=== PATIENT | male | born 1955 | race Caucasian/White ===

== ENCOUNTER → 2017-06-30 06:51 | Outpatient (CLI) | payer BC, SELFPAY ==
--- NOTE | 2017-06-30 10:53 | PFTCOMP ---
COMPLETE PULMONARY FUNCTION TEST INTERPRETATION Brief HPI: Patient is a 61 year old male, currently under the care of Dr. Moore, who presents to [facility] for complete pulmonary function tests secondary to diagnosis of dyspnea on exertion. Respiratory therapist reports good effort and reproducible results. Interpretation: Forced expiration spirometry shows a mild large airways obstructive ventilatory defect with an FEV1 of 79 % predicted. There is no significant bronchodilator response by ATS criteria. Spirograms are of good quality and plateau slowly, indicating slowly emptying areas of the lungs. The respiratory flow volume loop shows decreased expiratory flow rates at all lung volumes consistent with airway obstruction. Lung volumes by body plethysmography show a normal total lung capacity at 5.74 L, 97 % predicted. All other lung volumes are within normal limits. Diffusion capacity by carbon monoxide is at the lower limit of normal at 72 % predicted. The airway resistance is elevated. No previous pulmonary function tests were available for review. Impression: Irreversible mild large airways obstructive ventilatory defect with a symmetric reduction diffusing capacity consistent with the diagnosis of COPD.
--- NOTE | 2017-06-30 10:56 | PFTCOMP_ITS ---
COMPLETE PULMONARY FUNCTION TEST INTERPRETATION Brief HPI: Patient is a 61 year old male, currently under the care of Dr. Moore, who presents to [facility] for complete pulmonary function tests secondary to diagnosis of dyspnea on exertion. Respiratory therapist reports good effort and reproducible results. Interpretation: Forced expiration spirometry shows a mild large airways obstructive ventilatory defect with an FEV1 of 79 % predicted. There is no significant bronchodilator response by ATS criteria. Spirograms are of good quality and plateau slowly, indicating slowly emptying areas of the lungs. The respiratory flow volume loop shows decreased expiratory flow rates at all lung volumes consistent with airway obstruction. Lung volumes by body plethysmography show a normal total lung capacity at 5.74 L , 97 % predicted. All other lung volumes are within normal limits. Diffusion capacity by carbon monoxide is at the lower limit of normal at 72 % predicted. The airway resistance is elevated. No previous pulmonary function tests were available for review. Impression: Irreversible mild large airways obstructive ventilatory defect with a symmetric reduction diffusing capacity consistent with the diagnosis of COPD.
== END ==
PROVIDERS: Family Provider Internal Medicine; PCP Internal Medicine; Visit Provider Internal Medicine
DX: R06.09 Other forms of dyspnea (principal)
CPT/HCPCS: 94060; 94726; 94729

== ENCOUNTER → 2017-11-15 05:57 | Outpatient (CLI) | payer BC, SELFPAY ==
[2017-11-15 09:16] LABS: Hemoglobin A1c 6.5 % (4.2-6.3)
[2017-11-15 09:27] LABS: ALB/GLOB Ratio 1.2 RATIO (0.9-2.4); AST(SGOT) 22 U/L (15-37); Alanine Aminotransfer ALT/SGPT 32 U/L (16-61); Albumin, Serum 3.9 g/dL (3.2-5.0); Alkaline Phosphatase 72 U/L (45-117); Anion Gap 14 (5-15); BUN 16 mg/dL (7-18); BUN/Creat Ratio 20.9 RATIO (10-20); Calcium,Total 8.8 mg/dL (8.5-10.1); Chloride 103 mmol/L (98-107); Cholesterol 107 mg/dL (200); Creatinine, Serum 0.76 mg/dL (0.70-1.30); EST Glomerular Filtration Rate 110 mL/min (>60); Est Glom Filt Rate - Afr Amer 133 mL/min (>60); Globulin 3.3 g/dL (2.2-4.2); Glucose 116 mg/dL (74-106); High Density Lipoprotein 32 mg/dL; Potassium 3.8 mmol/L (3.5-5.1); Protein, Total 7.2 g/dL (6.4-8.2); Sodium Level 143 mmol/L (136-145); Thyroid Stim Hormone (TSH) 0.21 uIU/mL (0.358-3.74); Triglycerides 171 mg/dL; Very Low Density Lipoprotein 34 mg/dL (5-40)
== END ==
PROVIDERS: Family Provider Internal Medicine; PCP Internal Medicine; Visit Provider Internal Medicine
DX: E11.9 Type 2 diabetes mellitus without complications (principal); R94.6 Abnormal results of thyroid function studies; E78.4 Other hyperlipidemia
CPT/HCPCS: 36415; 80053; 80061; 83036; 84443

== ENCOUNTER → 2018-03-01 10:15 | Outpatient (CLI) | payer BC, SELFPAY ==
--- NOTE | 2018-03-01 10:17 | US_ITS ---
STUDY: THYROID ULTRASOUND REASON FOR EXAM: Male, 62 years old. Nodule TECHNIQUE: Ultrasound evaluation of the thyroid was performed with real-time and static rocha-scale imaging. COMPARISON: Prior study of 03/25/2017 FINDINGS: RIGHT LOBE: The right lobe of the thyroid gland measures 4.5 x 1.6 x 2.0 cm. There is a homogeneous echotexture. There are no demonstrated solid, cystic or complex lesions. LEFT LOBE: The left lobe of the thyroid gland measures 3.9 x 1.4 x 1.2 cm. There is a homogeneous echotexture. There is a hyperechoic nodule of the upper pole with hypoechoic halo measuring 6 x 6 x 4 mm. There is minimal peripheral vascularity. ISTHMUS: The isthmus measures 4 mm . The regional lymph nodes are normal. US/Thyroid IMPRESSION: Stable hyperechoic nodule of the upper pole of the left thyroid lobe. Electronically Signed: Kingston Marquis MD at 23:56 EST , Service support ,
== END ==
PROVIDERS: Family Provider Internal Medicine; PCP Internal Medicine; Referring Provider Internal Medicine; Visit Provider Internal Medicine
DX: E04.1 Nontoxic single thyroid nodule (principal); R79.89 Other specified abnormal findings of blood chemistry
CPT/HCPCS: 36415; 76536; 84443

== ENCOUNTER → 2018-03-24 06:05 | Outpatient (CLI) | payer BC, SELFPAY ==
--- NOTE | 2018-03-24 06:11 | ECHOD_ITS ---
Procedure This was a 2D Doppler, Color Flow transthoracic echocardiogram. The exam was of adequate technical quality. Exam performed in department. Left Ventricle Normal LV size. Apical false tendon noted. Left ventricular systolic function is normal. The estimated ejection fraction is 60 %. No evidence for diastolic dysfunction. No regional wall motion abnormalities noted. Right Ventricle Normal RV size. Normal systolic function. Atria Normal left atrium. Normal right atrium. No doppler evidence for ASD. Mitral Valve There is no mitral annular calcification. Normal mitral valve. Mild (1+) mitral valve insufficiency. Tricuspid Valve Normal tricuspid valve. Trivial tricuspid valve insufficiency. Right ventricular systolic pressure estimated to be 30 mmHg. Aortic Valve Trisinus/trileaflet aortic valve. Mild focal aortic valve calcification. Pulmonic Valve The pulmonic valve is not well visualized. Mild (1+) pulmonic valve insufficiency. Great Vessels Normal sized aortic root. Calcified aortic root. Pericardium/Pleural No pericardial effusion. MMode/2D Measurements & Calculations LVIDd: 4.2 cm IVSd: 1.1 cm Ao root diam: 3.3 cm LVIDs: 3.1 cm LVPWd: 1.0 cm RVDd: 3.7 cm FS: 25.9 % LAV(MOD-bp): 53.8 ml LA A4 area: 17.0 cm2 LA dimension(2D): 3.5 cm LAV(MOD-bp) Indexed: 28.0 ml/m2 LAV(MOD-sp2): 59.0 ml LAV(MOD-sp4): 49.4 ml RA A4 area: 15.0 cm2 Time Measurements MV dec time: 0.22 sec Doppler Measurements & Calculations MV E max ameya: 57.0 cm/sec Lat Peak E' Ameya: 11.8 cm/sec Med Peak E' Ameya: 8.7 cm/sec MV A max ameya: 76.2 cm/sec E/E' lat: 4.8 E/E' med: 6.6 MV E/A: 0.75 Ao V2 max: 120.3 cm/sec LV V1 max: 88.1 cm/sec PA V2 max: 118.2 cm/sec Ao max P.8 mmHg LV V1 max P.1 mmHg TR max ameya: 258.8 cm/sec TR max P.8 mmHg Interpretation Summary Left ventricular systolic function is normal. The estimated ejection fraction is 60 %. Apical false tendon noted. Mild (1+) mitral valve insufficiency. Trivial tricuspid valve insufficiency. Mild focal aortic valve calcification. Mild (1+) pulmonic valve insufficiency. Calcified aortic root. Right ventricular systolic pressure estimated to be 30 mmHg. No evidence for diastolic dysfunction. Ordering Physician: Rena Moore Referring Physician: Rena Moore Performed By: Melly Rand, RDCS, RVT
--- NOTE | 2018-03-24 13:24 | STRESSREP_ITS ---
Stress Test Report Date: 03/24/2018 Procedure: Exercise tolerance test/imaging study Indications: Chest pain; dyspnea on exertion Consent: Per the patient Procedure: The patient exercised on a Ruben protocol for 8 minutes completing Stage II and 2 minutes of Stage III achieving a peak heart rate of 148 bpm (93 % predicted maximal heart rate) with a peak blood pressure 184/70 mmHg and a peak MET capacity of 9 METs. The baseline ECG demonstrated sinus rhythm. The peak exercise ECG demonstrated no obvious ECG changes. There were no cardiac dysrhythmias pretest, during exercise, or recovery. The functional capacity was considered good. There was no complaint of chest discomfort during exercise or recovery. The examination was discontinued secondary to dyspnea. Impression: 1. Technically adequate (percent predicted maximal heart rate greater than 85%) exercise tolerance test 2. Peak exercise ECG straight with no obvious ECG changes 3. There were no cardiac dysrhythmias pretest, during exercise, or recovery 4. Nuclear images pending Myocardial perfusion imaging study: Technique: The patient was injected with 11.4 mCi of technetium 99m Cardiolite and subsequently rest SPECT Cardiolite nuclear imaging was obtained in the horizontal long, vertical long, and short axis views. The patient exercised on a Ruben protocol for 8 minutes completing Stage Ii and 2 minutes of Stage III achieving a peak heart rate of 148 bpm (93% predicted maximal heart rate) with a peak blood pressure 184/70 mmHg and a peak MET capacity of 9 METs. The patient was injected with 33.3 mCi of technetium 99m Cardiolite and subsequently stress SPECT Cardiolite nuclear imaging was obtained in the horizontal long, vertical long, and short axis views. A gated Cardiolite study at peak stress was obtained. Interpretation: Rest and stress SPECT Cardiolite nuclear imaging status post realignment, normalization, and attenuation correction, demonstrates the appearance of relative uniform tracer uptake and myocardial perfusion appearing within normal limits. There is end systolic thickening and brightening. The gated Cardiolite study demonstrates myocardial thickening and inward wall motion. The reported LVEF is 62%. Impression: 1. Rest and stress SPECT Cardiolite nuclear imaging demonstrate relative uniform tracer uptake and myocardial perfusion appearing within normal limits. 2. The gated Cardiolite study reports an LVEF of 62%. This note was generated with [employer] software. It may contain incorrect words, spelling, and punctuation that were not noted in checking the note before signing.
== END ==
PROVIDERS: Family Provider Internal Medicine; PCP Internal Medicine; Referring Provider Internal Medicine; Visit Provider Internal Medicine
DX: I42.9 Cardiomyopathy, unspecified (principal); R07.9 Chest pain, unspecified
CPT/HCPCS: 78452; 93017; 93306; A9500; A4216

== ENCOUNTER → 2018-06-22 06:24 | Outpatient (CLI) | payer BC, SELFPAY ==
[2018-06-22 07:44] LABS: Absolute Lymphocyte Count 1.76 X10^3/ul (0.83-4.51); Absolute Neutrophil Count 9.3 X10^3/uL (2.0-7.7); Basophil# 0.05 X10^3/uL; Basophil% 0.4 % (0-1); Eosinophil# 0.45 X10^3/uL; Eosinophils% 3.4 % (0-5); Hematocrit 40.8 % (40-54); Hemoglobin 12.8 g/dl (13.0-16.5); Lymphocyte # 1.76 X10^3/ul (4.0); Lymphocyte % 13.4 % (19-41); Mean Corp Hgb Conc 31.4 g/gl (32-36); Mean Corpuscular Hgb 28.8 pg (27.0-32.0); Mean Corpuscular Volume 91.9 fL (80-94); Mean Platelet Vol. 9.8 fl (6.2-12.0); Monocyte# 1.51 X10^3/uL; Monocyte% 11.5 % (0-10); Neutrophil # 9.34 X10^3/uL (2.7-7.7); Neutrophil % 71.1 % (47-70); Platelet Count 272 K/mm3 (150-450); RBC Distribution Width CV 14.7 % (11.6-14.6); RBC Distribution Width SD 48.2 fl (35.1-43.9); Red Blood Count 4.44 M/mm3 (4.6-6.2); White Blood Count 13.1 K/mm3 (4.4-11.0)
[2018-06-22 07:45] LABS: Differential Indicated SCAN CRITERIA MET; POSITIVE COUNT NO; POSITIVE DIFFERENTIAL YES; POSITIVE MORPHOLOGY NO
[2018-06-22 07:56] LABS: ALB/GLOB Ratio 1.1 RATIO (0.9-2.4); AST(SGOT) 20 U/L (15-37); Alanine Aminotransfer ALT/SGPT 29 U/L (16-61); Albumin, Serum 3.9 g/dL (3.2-5.0); Alkaline Phosphatase 73 U/L (45-117); Anion Gap 7 (5-15); BUN 14 mg/dL (7-18); BUN/Creat Ratio 16.9 RATIO (10-20); Calcium,Total 8.8 mg/dL (8.5-10.1); Chloride 105 mmol/L (98-107); Cholesterol 118 mg/dL (200); Creatinine, Serum 0.83 mg/dL (0.70-1.30); EST Glomerular Filtration Rate 100 mL/min (>60); Est Glom Filt Rate - Afr Amer 121 mL/min (>60); Globulin 3.4 g/dL (2.2-4.2); Glucose 109 mg/dL (74-106); High Density Lipoprotein 38 mg/dL; Potassium 3.7 mmol/L (3.5-5.1); Protein, Total 7.3 g/dL (6.4-8.2); Sodium Level 141 mmol/L (136-145); Triglycerides 114 mg/dL; Very Low Density Lipoprotein 23 mg/dL (5-40)
[2018-06-22 08:26] LABS: Differential Comment SCANNED
[2018-06-22 12:47] LABS: Hemoglobin A1c 6.6 % (4.2-6.3)
== END ==
PROVIDERS: Family Provider Internal Medicine; PCP Internal Medicine; Referring Provider Internal Medicine; Visit Provider Internal Medicine
DX: E78.49 Other hyperlipidemia (principal); E11.9 Type 2 diabetes mellitus without complications
CPT/HCPCS: 36415; 80053; 80061; 83036; 85025

== ENCOUNTER → 2018-06-27 08:39 | Outpatient (CLI) | payer BC, SELFPAY ==
--- NOTE | 2018-06-27 08:46 | US_ITS ---
PROCEDURES: ULTRASOUND AORTA REASON FOR EXAM: Male, 62 years old. Evaluate abdominal aortic aneurysm. TECHNIQUE: Ultrasound evaluation of the aorta was performed with real-time and static rocha-scale imaging. COMPARISON: 02/10/2016. FINDINGS: There is no elongation or tortuosity of the abdominal aorta. Aorta measures: Proximal 2.1 cm. Middle 2 cm. Distal 2.4 cm. Aorta measure transversely: Proximal 2.3 cm. Middle 2.4 cm. Distal 2.8 cm. Right iliac artery measures: 1.3 cm. Right iliac artery measure transversely: 1.1 cm. Left iliac artery measures: 1 cm. Left iliac artery measure transversely: 1 cm. There is no demonstrated aneurysm.. There are atherosclerotic plaque formation throughout the aorta. US/Aorta IMPRESSION: 1. Minimal ectasia of the distal abdominal aorta without evidence of abdominal aortic aneurysm unchanged since the prior exam. 2. Atherosclerotic changes. Electronically Signed: Nawaf Day MD at 10:27 EDT Tel , Service support ,
== END ==
PROVIDERS: Family Provider Internal Medicine; PCP Internal Medicine; Referring Provider Internal Medicine; Visit Provider Internal Medicine
DX: I71.4 Abdominal aortic aneurysm, without rupture (principal)
CPT/HCPCS: 76775

== ENCOUNTER → 2018-12-23 16:31 | Outpatient (CLI) | payer BC, SELFPAY ==
[2018-09-08 08:54] VITALS: BMI 28.4
[2018-12-23 17:06] LABS: Absolute Lymphocyte Count 2.26 X10^3/uL (0.83-4.51); Absolute Neutrophil Count 8.7 X10^3/uL (2.0-7.7); Basophil# 0.08 X10^3/uL; Basophil% 0.6 % (0-1); Eosinophil# 0.49 X10^3/uL; Eosinophils% 3.9 % (0-5); Hematocrit 39.2 % (40-54); Hemoglobin 12.6 g/dL (13.0-16.5); Lymphocyte # 2.26 X10^3/ul (4.0); Lymphocyte % 17.8 % (19-41); Mean Corp Hgb Conc 32.1 g/dL (32-36); Mean Corpuscular Hgb 28.8 pg (27.0-32.0); Mean Corpuscular Volume 89.7 fL (80-94); Mean Platelet Vol. 9.1 fl (6.2-12.0); Monocyte# 1.16 X10^3/uL; Monocyte% 9.1 % (0-10); NRBC Flagged by Analyzer 0 % (0-5); Neutrophil # 8.69 X10^3/uL (2.7-7.7); Neutrophil % 68.4 % (47-70); Platelet Count 282 K/mm3 (150-450); RBC Distribution Width CV 14.2 % (11.6-14.6); RBC Distribution Width SD 46.3 fl (35.1-43.9); Red Blood Count 4.37 M/mm3 (4.6-6.2); White Blood Count 12.7 K/mm3 (4.4-11.0)
[2018-12-23 17:24] LABS: Hemoglobin A1c 6.7 % (4.2-6.3)
[2018-12-23 17:26] LABS: Microalbumin,Random Urine 73.1 mg/L (NO RANGE EST.); Microalbumin:Creatinine Ratio 63.6 mg/g CRE (<30 mg/g CRE)
[2018-12-23 17:37] LABS: AST(SGOT) 18 U/L (15-37); Alanine Aminotransfer ALT/SGPT 24 U/L (16-61); Albumin, Serum 3.8 g/dL (3.2-5.0); Alkaline Phosphatase 72 U/L (45-117); Anion Gap 6 (5-15); BUN 17 mg/dL (7-18); BUN/Creat Ratio 20.9 RATIO (10-20); CRP, High Sensitivity Cardiac 3.38 mg/L; Calcium,Total 9.2 mg/dL (8.5-10.1); Chloride 107 mmol/L (98-107); Cholesterol 120 mg/dL (200); Creatinine, Serum 0.81 mg/dL (0.70-1.30); EST Glomerular Filtration Rate 102 mL/min (>60); Est Glom Filt Rate - Afr Amer 123 mL/min (>60); Globulin 3.7 g/dL (2.2-4.2); Glucose 96 mg/dL (74-106); High Density Lipoprotein 35 mg/dL; Potassium 4.2 mmol/L (3.5-5.1); Protein, Total 7.5 g/dL (6.4-8.2); Sodium Level 141 mmol/L (136-145); Triglycerides 104 mg/dL; Very Low Density Lipoprotein 21 mg/dL (5-40)
== END ==
PROVIDERS: Family Provider Internal Medicine; PCP Internal Medicine; Referring Provider Internal Medicine; Visit Provider Internal Medicine
DX: R79.82 Elevated C-reactive protein (CRP) (principal); I11.9 Hypertensive heart disease without heart failure; E78.49 Other hyperlipidemia; E11.9 Type 2 diabetes mellitus without complications
CPT/HCPCS: 36415; 80053; 80061; 82043; 82570; 83036; 85025; 86141

== ENCOUNTER → 2019-02-21 08:42 | Outpatient (CLI) | payer BC, SELFPAY ==
[2018-09-08 08:54] VITALS: BMI 28.4
--- NOTE | 2019-02-21 08:44 | US_ITS ---
STUDY: THYROID ULTRASOUND REASON FOR EXAM: Male, 63 years old. Nodule TECHNIQUE: Ultrasound evaluation of the thyroid was performed with real-time and static rocha-scale imaging. COMPARISON: March 01, 2018 FINDINGS: RIGHT LOBE: The right lobe of the thyroid gland measures 4.4 x 1.2 x 1.4 cm. There is a homogeneous echotexture. There are no demonstrated solid, cystic or complex lesions. LEFT LOBE: The left lobe of the thyroid gland measures 4.0 x 1.4 x 1.6 cm. There is a homogeneous echotexture. There is a stable hyperechoic nodule with a hypoechoic halo measuring 5.7 x 5.6 x 3.7 mm. There is a colloid cyst noted within the left lobe of the gland as well that is stable. ISTHMUS: The isthmus measures 2.0 millimeters. US/Thyroid IMPRESSION: Stable hyperechoic nodule within the left lobe of the thyroid gland. Electronically Signed: Ana Barry MD at 17:22 EST Tel , Service support ,
== END ==
PROVIDERS: Family Provider Internal Medicine; PCP Internal Medicine; Referring Provider Internal Medicine; Visit Provider Internal Medicine
DX: E04.1 Nontoxic single thyroid nodule (principal)
CPT/HCPCS: 76536

== ENCOUNTER → 2019-03-14 16:58 | Outpatient (CLI) | payer BC, SELFPAY ==
[2018-09-08 08:54] VITALS: BMI 28.4
--- NOTE | 2019-03-14 | IMM_PTH ---
PATIENT: ERMA PÉREZ LOC: [facility] U#:[id number] AGE/SX: 69/M ROOM: RE03/14/[address]: Dr. Radames Armenta MD : 1955 BED: DIS: SPEC #: [id number] RECD: 03/16/19 13:35 STATUS: ROQUE REQ #: [id number] NIKKO: 03/14/19 00:[address]: Radames Armenta DEPT: IMMUNOHISTOCHEMISTRY RECD BY: Brook Adams ENTERED: 03/16/19 13:36 SP TYPE: IMMUNO OTHR DR: Dr. Rena Moore DO Tissues: B - PROSTATE RIGHT E - PROSTATE LEFT Procedures: 34BE12 (add) P40 (add) 34BE12 (initial) PHYSICIAN & INSTITUTION [place] [id number] SPECIMEN INFORMATION: Tissue Source: B - Right prostate, mid, core biopsy, E - Left prostate, mid, core biopsy Clinical Info: Elevated PSA Specimen Number: [id number] B & E CPT code: 19444, 61825 x3 METHODOLOGY: Deparaffinized sections of prefer/formalin-fixed tissue or PAP/DQ stained slides are incubated with monoclonal/polyclonal antibodies/oligonucleotide probes. Localization is made via biotin free immunoperoxidase method. Appropriate controls are performed and reacted as expected. Results on target cell population are indicated in the following table: RESULTS: ANTIBODY / CLONE RESULT Block B P40 (BC28) negative * 34BE12 (34BE12) negative * Block E P40 (BC28) negative 34BE12 (34BE12) negative *?Positive in the area of high grade prostatic intraepithelial neoplasia. These tests were developed and their performance characteristics determined by [facility]. They may not have been cleared or approved by the U.S. Food and Drug Administration. The FDA has determined that such clearance or approval is not necessary. The above immunohistochemical/dualISH markers are ordered and reviewed by the Pathologist. INTERPRETATION: B. Right prostate, mid, core biopsy: Adenocarcinoma. Focal high-grade prostatic intraepithelial neoplasia (HGPIN). E. Left prostate, mid, core biopsy: Adenocarcinoma. SJ:toby 03/17/19
--- NOTE | 2019-03-14 08:00 | PROSBIL_PTH ---
PATIENT: ERMA PÉREZ LOC: [facility] U#:[id number] AGE/SX: 69/M ROOM: RE03/14/[address]: Dr. Radames Armenta MD : 1955 BED: DIS: SPEC #: [id number] RECD: 03/14/19 16:00 STATUS: ROQUE JANNET #: [id number] NIKKO: 03/14/19 08:[address]: Radames Armenta DEPT: SURGICAL PATHOLOGY RECD BY: Manav Montes ENTERED: 03/15/19 11:53 SP TYPE: PROST BX EARNESTINE DR: Dr. Rena Moore DO Tissues: A - PROSTATE RIGHT B - PROSTATE RIGHT C - PROSTATE RIGHT D - PROSTATE LEFT E - PROSTATE LEFT F - PROSTATE LEFT Procedures: PROSTATE BX HEADER OPERATION: Prostate biopsy PRE-OP DIAGNOSIS: Elevated PSA TISSUE SUBMITTED: A - Right apex, B - Right mid, C - Right base, D - Left apex, E - Left mid, F - Left base MICROSCOPIC DIAGNOSIS A. Right prostate, apex, core biopsy: Prostatic tissue, negative for malignancy. B. Right prostate, mid, core biopsy: Prostatic adenocarcinoma: [place] grade: 3+3=6 Number of cores involved: 2/2 Proportion of tissue involved: ~50% Perineural invasion: Not identified. Greatest tumor length: 0.7 cm Focal high-grade prostatic intraepithelial neoplasia (HGPIN). See comment. C. Right prostate, base, core biopsy: Prostatic tissue with focal area suspicious for high-grade prostatic intraepithelial neoplasia (HGPIN). D. Left prostate, apex, core biopsy: Prostatic tissue, negative for malignancy. E. Left prostate, mid, core biopsy: Prostatic adenocarcinoma: [place] grade: 3+3=6 Number of cores involved: 1/2 Proportion of tissue involved: <5% Perineural invasion: Not identified. Greatest tumor length: 0.2 cm Focal chronic inflammation. See comment. F. Left prostate, base, core biopsy: Focal high-grade prostatic intraepithelial neoplasia (HGPIN). SJ:toby 03/16/19 COMMENT B. Immunohistochemistry ([id number]) supports the above diagnosis. High prostatic intraepithelial neoplasia is present in the area of invasive carcinoma and comprise about 50% of the total tumor volume. E. Immunohistochemistry ([id number]) supports the above diagnosis. MICROSCOPIC DESCRIPTION Slides are reviewed. GROSS DESCRIPTION A - Received is one container designated prostate, right apex. The specimen consists of three elongated fragments of light littlejohn-white soft tissue measuring 0.3 to 0.5 cm in length and 0.1 cm in diameter. The specimen is totally submitted in one cassette. B - Received is one container designated prostate, right mid. The specimen consists of two elongated fragments of light littlejohn-white soft tissue each measuring 1 cm in length and 0.1 cm in diameter. The specimen is totally submitted in one cassette. C - Received is one container designated prostate, right base. The specimen consists of two elongated fragments of light littlejohn-white soft tissue measuring 0.5 and 1 cm in length and 0.1 cm in diameter. The specimen is totally submitted in one cassette. D - Received is one container designated prostate, left apex. The specimen consists of one elongated fragment of light littlejohn-white soft tissue measuring 0.7 cm in length and 0.1 cm in diameter. The specimen is totally submitted in one cassette. E - Received is one container designated prostate, left mid. The specimen consists of two elongated fragments of light littlejohn-white soft tissue each measuring 1 cm in length and 0.1 cm in diameter. The specimen is totally submitted in one cassette. F - Received is one container designated prostate, left base. The specimen consists of two elongated fragments of light littlejohn-white soft tissue each measuring 1 cm in length and 0.1 cm in diameter. The specimen is totally submitted in one cassette. / SJ:rg 03/15/19 TC:0 CPT: 70530 x6 ADDENDUM ADDENDUM ADDENDUM ADDENDUM ADDENDUM ADDENDUM ADDENDUM ADDENDUM 04/19/2019 11:13 ADDENDUM 04/19/2019 11:13 ADDENDUM 04/19/2019 11:13 ADDENDUM 04/19/2019 11:13 ADDENDUM 04/19/2019 11:13 An order for Oncotype testing was received from Dr. Armenta. This necessitated case review, block and slide selection by pathologist at [facility]. Genomic Prostate Score = 44 Results of the complete Oncotype testing (WeShow report) are viewable in EMR under: Reports - Pathology - Lab Pathology Report, Scanned.
== END ==
PROVIDERS: Family Provider Internal Medicine; PCP Internal Medicine; Referring Provider Urology; Visit Provider Urology
DX: R97.20 Elevated prostate specific antigen [PSA] (principal)
CPT/HCPCS: 88305; 88341; 88342; G0416

== ENCOUNTER → 2019-03-27 15:31 | Outpatient (CLI) | payer BC, SELFPAY ==
[2018-09-08 08:54] VITALS: BMI 28.4
== END ==
PROVIDERS: Family Provider Internal Medicine; PCP Internal Medicine; Referring Provider Urology; Visit Provider Urology
DX: N39.0 Urinary tract infection, site not specified (principal)
CPT/HCPCS: 87086

== ENCOUNTER → 2019-04-03 09:32 | Outpatient (CLI) | payer BC, SELFPAY ==
[2018-09-08 08:54] VITALS: BMI 28.4
[2019-04-03 10:29] LABS: Absolute Lymphocyte Count 2.26 X10^3/uL (0.83-4.51); Absolute Neutrophil Count 6.6 X10^3/uL (2.0-7.7); Basophil# 0.09 X10^3/uL; Basophil% 0.9 % (0-1); Eosinophil# 0.35 X10^3/uL; Eosinophils% 3.3 % (0-5); Hematocrit 41.4 % (40-54); Lymphocyte # 2.26 X10^3/ul (4.0); Lymphocyte % 21.4 % (19-41); Mean Corp Hgb Conc 31.4 g/dL (32-36); Mean Corpuscular Hgb 28.4 pg (27.0-32.0); Mean Corpuscular Volume 90.6 fL (80-94); Mean Platelet Vol. 9.7 fl (6.2-12.0); Monocyte# 1.26 X10^3/uL; NRBC Flagged by Analyzer 0 % (0-5); Neutrophil # 6.55 X10^3/uL (2.7-7.7); Neutrophil % 62.1 % (47-70); Platelet Count 281 K/mm3 (150-450); RBC Distribution Width CV 14.6 % (11.6-14.6); RBC Distribution Width SD 48.6 fl (35.1-43.9); Red Blood Count 4.57 M/mm3 (4.6-6.2); White Blood Count 10.5 K/mm3 (4.4-11.0)
[2019-04-03 10:57] LABS: Hemoglobin A1c 6.9 % (4.2-6.3)
[2019-04-03 11:02] LABS: ALB/GLOB Ratio 1.1 RATIO (0.9-2.4); AST(SGOT) 18 U/L (15-37); Alanine Aminotransfer ALT/SGPT 25 U/L (16-61); Alkaline Phosphatase 76 U/L (45-117); Anion Gap 2 (5-15); BUN 20 mg/dL (7-18); BUN/Creat Ratio 24.8 RATIO (10-20); Calcium,Total 9.3 mg/dL (8.5-10.1); Chloride 109 mmol/L (98-107); Cholesterol 130 mg/dL (200); Creatinine, Serum 0.81 mg/dL (0.70-1.30); EST Glomerular Filtration Rate 103 mL/min (>60); Est Glom Filt Rate - Afr Amer 124 mL/min (>60); Globulin 3.7 g/dL (2.2-4.2); Glucose 92 mg/dL (74-106); High Density Lipoprotein 37 mg/dL; Potassium 3.8 mmol/L (3.5-5.1); Protein, Total 7.7 g/dL (6.4-8.2); Sodium Level 141 mmol/L (136-145); Thyroid Stim Hormone (TSH) 0.71 uIU/mL (0.358-3.74); Triglycerides 83 mg/dL; Very Low Density Lipoprotein 17 mg/dL (5-40)
== END ==
PROVIDERS: Family Provider Internal Medicine; PCP Internal Medicine; Referring Provider Internal Medicine; Visit Provider Internal Medicine
DX: E11.9 Type 2 diabetes mellitus without complications (principal); E04.1 Nontoxic single thyroid nodule; E78.49 Other hyperlipidemia
CPT/HCPCS: 36415; 80053; 80061; 83036; 84443; 85025

== ENCOUNTER → 2019-05-29 06:51 | Outpatient (CLI) | payer BC, SELFPAY ==
[2018-09-08 08:54] VITALS: BMI 28.4
[2019-05-29 07:16] LABS: Partial Thromboplast Time 46.7 Seconds (24.1-36.2)
== END ==
PROVIDERS: PCP Internal Medicine
DX: Z01.818 Encounter for other preprocedural examination (principal)
CPT/HCPCS: 36415; 85730

== ENCOUNTER → 2019-09-07 | Outpatient (CLI) | payer BC, SELFPAY ==
[2018-09-08 08:54] VITALS: BMI 28.4
[2019-08-31 11:18] VITALS: BMI 28.1
--- NOTE | 2019-09-07 10:43 | MRI_ITS ---
STUDY: MR PELVIS WITH T WITHOUT CONTRAST REASON FOR EXAM: Male, 63 years old. Prostate cancer. TECHNIQUE: Standardized fat and water weighted pulse sequences were obtained in all 3 orthogonal planes, pre-and post contrast administration. 17ml IV Dotarem was administered for the contrast portion of the examination. COMPARISON: None. FINDINGS: The prostate measures 5.45 x 4.42 x 5.68 cm with a volume of milliliters. The peripheral zone demonstrates uniform signal intensity on diffusion-weighted imaging. ADC mapping and on T2 weighted imaging. There is an area of intense uptake of contrast posteriorly on the right on postgadolinium T1-weighted imaging. The transition zone appears uniformly intermediate signal intensity on T2-weighted imaging. There is a small projection into the floor of the bladder. This appears uniform in signal intensity on both ADC mapping and diffusion-weighted imaging. Seminal vesicles appear normal. No irregularity of the prosthetic margin or evidence of local extension. There is mild trabeculation and minimal thickening of the bladder wall. There is no evidence of filling defect or mass. Normal visualized small intestine. There is sigmoid diverticulosis without acute inflammatory change. There is no pelvic fluid. There is no pelvic mass lesion or lymphadenopathy. Normal visualized pelvic arteries. Normal osseous structures. Normal abdominal wall. MRI/Pelvis W/WO Contrast IMPRESSION: 1. Findings in the peripheral zone consistent with a PIRADS Category 1: normal. There is mild enhancement posteriorly on the right. Question recent biopsy. 2. Findings in the transitional zone consistent with a PIRADS Category 1: Normal. 3. Sigmoid diverticulosis. 4. Bladder trabeculation thought to be secondary to outlet obstruction. Electronically Signed: Lukas Avila DO at 17:05 EDT Tel [phone], Service support ,
--- NOTE | 2019-09-07 11:00 | RAD_ITS ---
STUDY: X-RAY - ORBITS REASON FOR EXAM: Male, 63 years old. Hx of metal to the eye, pre MRI TECHNIQUE: 2 view(s) of the orbits were obtained. COMPARISON: None. FINDINGS: Normal bilateral orbits without a metallic orbital foreign body. Normal visualized facial bones. Normal paranasal sinuses. The soft tissue structures are unremarkable. RAD/Orbits for Foreign Body IMPRESSION: No demonstrated metallic orbital foreign body. The patient is cleared for an MRI examination. Electronically Signed: Andrea Mcdonald, at 11:14 EDT , Service support ,
--- NOTE | 2019-09-18 11:36 | ONC.PHONE ---
I called the patient to review the results from the MRI prostate completed 09/07/2019. This study demonstrated evidence for PI-RADS 1 findings within the peripheral and the transitional zones with no evidence of abnormality in the seminal vesicles and no evidence of potential extraprostatic extension. Also, PSA on 08/31/2019 was found to be 4.9. Patient was still inclined to pursue active surveillance which I believe is reasonable and he will return for a follow-up and PSA in 6 months. We will also plan to have him return to see his urologist for interval exams and biopsies while on active surveillance. He was instructed to call with any further questions or concerns or if he should develop any new symptoms in the interim. Barry Almodovar DO Radiation Oncology
== END | disposition home or self-care (01) ==
PROVIDERS: PCP Internal Medicine; Referring Provider Student in an Organized Health Care Education/Training Program; Visit Provider Student in an Organized Health Care Education/Training Program
DX: C61 Malignant neoplasm of prostate (principal)
CPT/HCPCS: 70030; 72197; A9575

== ENCOUNTER → 2020-01-26 11:26 | Outpatient (CLI) | payer BC, SELFPAY ==
[2018-09-08 08:54] VITALS: BMI 28.4
[2019-08-31 11:18] VITALS: BMI 28.1
--- NOTE | 2020-01-26 11:30 | RAD_ITS ---
STUDY: X-RAY - LUMBAR SPINE REASON FOR EXAM: Male, 64 years old. LOW BACK PAIN, NKI TECHNIQUE: 4 view(s) of the lumbar spine were obtained. COMPARISON: None FINDINGS: Normal lumbar lordosis. There is no substantial scoliosis. 2 mm of anterolisthesis of L4 on L5. There is multilevel endplate spondylosis of the lumbar vertebrae. There is multi-level degenerative disc disease with multi-level disc space narrowing. The soft tissue structures are unremarkable. RAD/L/S Spine Min 4 Views IMPRESSION: Mild diffuse degenerative disc disease with 2 mm of anterolisthesis of L4 on L5. Electronically Signed: Rigoberto Mitchell MD at 9:15 EDT Tel , Service support ,
== END ==
PROVIDERS: PCP Internal Medicine; Referring Provider Internal Medicine; Visit Provider Internal Medicine
DX: M54.5 Low back pain (principal)
CPT/HCPCS: 72110

== ENCOUNTER → 2020-02-02 15:50 | Outpatient (CLI) | payer BC, SELFPAY ==
[2018-09-08 08:54] VITALS: BMI 28.4
[2019-08-31 11:18] VITALS: BMI 28.1
--- NOTE | 2020-02-02 15:56 | US_ITS ---
STUDY: THYROID ULTRASOUND REASON FOR EXAM: Male, 64 years old. F/U NODULE-LT TECHNIQUE: Ultrasound evaluation of the thyroid was performed with real-time and static rocha-scale imaging. COMPARISON: 02/21/2019 FINDINGS: RIGHT LOBE: The right lobe of the thyroid gland measures 4.2 x 1.1 x 1.9 cm. There is a homogeneous echotexture. There are no demonstrated solid, cystic or complex lesions. LEFT LOBE: The left lobe of the thyroid gland measures 4.0 x 1.2 x 1.8 cm. There is a homogeneous echotexture. Nodule 1: Enlarging 9 x 5 x 7 mm solid hyperechoic wider than tall ill-defined marginated nodule with no echogenic foci (TR 3) likely consistent with a small adenoma. ISTHMUS: The isthmus measures 2 mm thick. . The regional lymph nodes are normal. US/Thyroid IMPRESSION: Enlarging probable small adenoma in the left lobe. Follow-up ultrasound in one year would be useful. Electronically Signed: Rigoberto Mitchell MD at 7:48 EST Tel , Service support ,
== END ==
PROVIDERS: PCP Internal Medicine; Referring Provider Internal Medicine; Visit Provider Internal Medicine
DX: E04.1 Nontoxic single thyroid nodule (principal)
CPT/HCPCS: 76536

== ENCOUNTER → 2020-03-04 06:46 | Outpatient (CLI) | payer BC, SELFPAY ==
[2018-09-08 08:54] VITALS: BMI 28.4
[2019-08-31 11:18] VITALS: BMI 28.1
--- NOTE | 2020-03-04 | IMM_PTH ---
PATIENT: ERMA PÉREZ LOC: [facility] U#:[id number] AGE/SX: 69/M ROOM: RE03/04/[address]: Dr. Radames Armenta MD : 1955 BED: DIS: SPEC #: [id number] RECD: 03/06/20 11:27 STATUS: ROQUE REQ #: [id number] NIKKO: 03/04/20 00:[address]: Radames Armenta DEPT: IMMUNOHISTOCHEMISTRY RECD BY: Brook Adams ENTERED: 03/06/20 11:27 SP TYPE: IMMUNO OTHR DR: Dr. Rena Moore DO Tissues: A - PROSTATE RIGHT B - PROSTATE RIGHT Procedures: 34BE12 (add) P40 (add) PSA (initial) PHYSICIAN & INSTITUTION [place] [id number] SPECIMEN INFORMATION: Tissue Source: A - Right prostate, apex, core biopsy, B - Right prostate, mid, core biopsy Clinical Info: Malignant neoplasm of prostate Specimen Number: [id number] A & B CPT code: 99133, 81023 x2 METHODOLOGY: Deparaffinized sections of prefer/formalin-fixed tissue or PAP/DQ stained slides are incubated with monoclonal/polyclonal antibodies/oligonucleotide probes. Localization is made via biotin free immunoperoxidase method. Appropriate controls are performed and reacted as expected. Results on target cell population are indicated in the following table: RESULTS: ANTIBODY / CLONE RESULT Block A PSA (ER-PR8) negative Block B P40 (BC28) negative 34BE12 (34BE12) negative These tests were developed and their performance characteristics determined by [facility]. They may not have been cleared or approved by the U.S. Food and Drug Administration. The FDA has determined that such clearance or approval is not necessary. The above immunohistochemical/dualISH markers are ordered and reviewed by the Pathologist. INTERPRETATION: A. Right prostate, apex, core biopsy: No evidence of carcinoma. B. Right prostate, mid, core biopsy: Adenocarcinoma. AM:toby 03/07/20
--- NOTE | 2020-03-04 08:00 | PROSBIL_PTH ---
PATIENT: ERMA PÉREZ LOC: [facility] U#:[id number] AGE/SX: 69/M ROOM: RE03/04/[address]: Dr. Radames Armenta MD : 1955 BED: DIS: SPEC #: [id number] RECD: 03/04/20 17:02 STATUS: ROQUE JANNET #: [id number] NIKKO: 03/04/20 08:[address]: Radames Armenta DEPT: SURGICAL PATHOLOGY RECD BY: Nita Hernández ENTERED: 03/05/20 07:16 SP TYPE: PROST BX EARNESTINE DR: Dr. Rena Moore DO Tissues: A - PROSTATE RIGHT B - PROSTATE RIGHT C - PROSTATE RIGHT D - PROSTATE LEFT E - PROSTATE LEFT F - PROSTATE LEFT Procedures: PROSTATE BX HEADER OPERATION: Prostate biopsy PRE-OP DIAGNOSIS: Malignant neoplasm of prostate TISSUE SUBMITTED: A - Right apex, B - Right mid, C - Right base, D - Left apex, E - Left mid, F - Left base MICROSCOPIC DIAGNOSIS A. Right prostate, apex, core biopsy: Benign prostatic tissue. See comment. B. Right prostate, mid, core biopsy: Adenocarcinoma. [place] grade: 6 (3+3) Cores involved: 2 out of 2 cores Tissue involved: 15% Greatest tumor length: 3 mm (discontinuous) See comment. C. Right prostate, base, core biopsy: Benign prostatic tissue. D. Left prostate, apex, core biopsy: Mild chronic inflammation and focal acute inflammation. E. Left prostate, mid, core biopsy: Mild chronic inflammation and focal acute inflammation. F. Left prostate, base, core biopsy: Focal high-grade prostatic intraepithelial neoplasia (HGPIN). Mild chronic inflammation and focal acute inflammation. AM:toby 03/06/20 COMMENT A & B. Immunohistochemistry ([id number]) supports the above diagnosis. MICROSCOPIC DESCRIPTION Slides are reviewed. GROSS DESCRIPTION A - Received is one container designated prostate, right apex. The specimen consists of two elongated fragments of light littlejohn-white soft tissue each measuring 1 cm in length and 0.1 cm in diameter. The specimen is totally submitted in one cassette. B - Received is one container designated prostate, right mid. The specimen consists of two elongated fragments of light littlejohn-white soft tissue each measuring 1.5 cm in length and 0.1 cm in diameter. The specimen is totally submitted in one cassette. C - Received is one container designated prostate, right base. The specimen consists of two elongated fragments of light littlejohn-white soft tissue each measuring 1 cm in length and 0.1 cm in diameter. The specimen is totally submitted in one cassette. D - Received is one container designated prostate, left apex. The specimen consists of two elongated fragments of light littlejohn-white soft tissue each measuring 1.5 cm in length and 0.1 cm in diameter. The specimen is totally submitted in one cassette. E - Received is one container designated prostate, left mid. The specimen consists of two elongated fragments of light littlejohn-white soft tissue each measuring 1.5 cm in length and 0.1 cm in diameter. The specimen is totally submitted in one cassette. F - Received is one container designated prostate, left base. The specimen consists of two elongated fragments of light littlejohn-white soft tissue each measuring 1 cm in length and 0.1 cm in diameter. The specimen is totally submitted in one cassette. / AM:rg 03/05/20 TC:0 CPT: 84964 x6
== END ==
PROVIDERS: PCP Internal Medicine; Visit Provider Urology
DX: C61 Malignant neoplasm of prostate (principal)
CPT/HCPCS: 88305; 88341; 88342; G0416

== ENCOUNTER → 2020-04-05 15:35 | Outpatient (CLI) | payer BC, SELFPAY ==
[2018-09-08 08:54] VITALS: BMI 28.4
[2019-08-31 11:18] VITALS: BMI 28.1
[2020-04-05 15:43] LABS: Bacteria 0 SEEN /hpf (None Seen); Mucous, Urine 0 SEEN /hpf (<or=2+); Red Blood Cells-Urine 0 SEEN /hpf (0-5); Squamous Epithelial Cells - UA 0 SEEN /hpf (0-5)
[2020-04-05 17:49] LABS: Absolute Lymphocyte Count 2.75 X10^3/uL (0.83-4.51); Absolute Neutrophil Count 7.4 X10^3/uL (2.0-7.7); Basophil# 0.07 X10^3/uL; Basophil% 0.6 % (0-1); Eosinophil# 0.47 X10^3/uL; Eosinophils% 3.9 % (0-5); Hematocrit 40.1 % (40-54); Hemoglobin 12.7 g/dL (13.0-16.5); Lymphocyte # 2.75 X10^3/ul (4.0); Lymphocyte % 22.7 % (19-41); Mean Corp Hgb Conc 31.7 g/dL (32-36); Mean Corpuscular Hgb 28.7 pg (27.0-32.0); Mean Corpuscular Volume 90.7 fL (80-94); Mean Platelet Vol. 10.1 fl (6.2-12.0); Monocyte# 1.43 X10^3/uL; Monocyte% 11.8 % (0-10); NRBC Flagged by Analyzer 0 % (0-5); Neutrophil # 7.35 X10^3/uL (2.7-7.7); Neutrophil % 60.8 % (47-70); Platelet Count 286 K/mm3 (150-450); RBC Distribution Width CV 14.1 % (11.6-14.6); Red Blood Count 4.42 M/mm3 (4.6-6.2); White Blood Count 12.1 K/mm3 (4.4-11.0)
[2020-04-05 17:54] LABS: Color, Urine Yellow (Yellow); Glucose, Dipstick Normal (Normal); Ketone-Dipstick Negative (Negative); Leukocyte Esterase-Dipstick 25 /ul (Negative); Nitrite-Dipstick Negative (Negative); Occult Blood-Urine 25 /ul (Negative); Protein-Dipstick 30 mg/dl (Negative); Urine Bilirubin Dipstick Negative (Negative); Urine Clarity Clear (Clear); Urine Urobilinogen Normal (Normal)
[2020-04-05 17:59] LABS: White Blood Cells 0-5 SEEN /hpf (0-5)
[2020-04-05 18:18] LABS: ALB/GLOB Ratio 1.3 RATIO (0.9-2.4); AST(SGOT) 23 U/L (15-37); Alanine Aminotransfer ALT/SGPT 36 U/L (16-61); Albumin, Serum 4.4 g/dL (3.2-5.0); Alkaline Phosphatase 73 U/L (45-117); Anion Gap 7 (5-15); BUN 19 mg/dL (7-18); BUN/Creat Ratio 25.3 RATIO (10-20); Calcium,Total 9.3 mg/dL (8.5-10.1); Chloride 103 mmol/L (98-107); Creatinine, Serum 0.75 mg/dL (0.70-1.30); EST Glomerular Filtration Rate 111 mL/min (>60); Est Glom Filt Rate - Afr Amer 134 mL/min (>60); Globulin 3.4 g/dL (2.2-4.2); Glucose 75 mg/dL (74-106); Potassium 3.9 mmol/L (3.5-5.1); Protein, Total 7.8 g/dL (6.4-8.2); Sodium Level 138 mmol/L (136-145)
== END ==
PROVIDERS: PCP Internal Medicine; Referring Provider Internal Medicine; Visit Provider Internal Medicine
DX: I11.9 Hypertensive heart disease without heart failure (principal)
CPT/HCPCS: 36415; 80053; 81001; 84443; 85025

== ENCOUNTER 2020-04-18 13:16 | Outpatient (CLI) | payer BC, SELFPAY ==
[2019-08-31 11:18] VITALS: BMI 28.1
[2020-04-18] VITALS (7 sets, daily range): BP systolic 132–146; BP diastolic 75–85; PULSE 67–75; RESP 18; TEMP 36.3–36.7; O2SAT 97–100; BMI 28.0
== END 2020-04-18 16:09 | disposition home or self-care (01) ==
LOC: MS2OUT 13:16 → MS2 13:17
PROVIDERS: PCP Internal Medicine; Referring Provider Nurse Practitioner Acute Care; Visit Provider Nurse Practitioner Acute Care
DX: U07.1 COVID-19 (principal)
CPT/HCPCS: J7050; M0239; Q0239

== ENCOUNTER → 2020-07-26 14:55 | Outpatient (CLI) | payer BC, SELFPAY ==
[2019-08-31 11:18] VITALS: BMI 28.1
[2020-06-07 08:36] VITALS: BMI 29.7
--- NOTE | 2020-07-26 14:58 | VDLE_ITS ---
Reason For Study: Rt leg swelling RIGHT LEFT GSV is normal. CFV is compressible, spontaneous, phasic, CFV is compressible, spontaneous, phasic, competent, and demonstrates normal competent and demonstrates normal augmentation. augmentation. FV is compressible, spontaneous, phasic, competent and demonstrates normal augmentation. POP V is compressible, spontaneous, phasic, competent and demonstrates normal augmentation. T/P Trunk is compressible. PTV is compressible. RT PerV is compressible. Procedure Exam performed in department. This is a venous duplex using B-mode, color flow and spectral Doppler. A preliminary report was called and/or faxed to Dr. Moore. VL/Venous Duplex US, Unilateral Interpretation Summary There is no evidence of right lower extremity deep vein thrombosis. Right great saphenous vein appears patent and compressible segmentally. Normal flow patterns left common f emoral vein Ordering Physician: Rena Moore Referring Physician: Rena Moore Performed By: Oralia Marr, DEANNA, RVT
--- NOTE | 2020-07-26 15:30 | RAD_ITS ---
STUDY: X-RAY CHEST REASON FOR EXAM: Male, 64 years old. SOB TECHNIQUE: PA and lateral views of the chest. COMPARISON: 12/31/2016 FINDINGS: The lungs are clear and expanded. There is no demonstrated pleural abnormality. Normal size heart. Normal mediastinum and elle. Normal visualized pulmonary arteries. Normal visualized aortic arch and descending thoracic aorta. Normal visualized thoracic spine. Normal visualized ribs, clavicles, and shoulders. There is no demonstrated abnormality of the visualized soft tissue structures of the upper abdomen. RAD/Chest PA and Lateral IMPRESSION: Normal x-ray examination of the chest. Electronically Signed: Rigoberto Mitchell MD at 12:41 EDT Tel , Service support ,
== END ==
PROVIDERS: PCP Internal Medicine; Referring Provider Internal Medicine; Visit Provider Internal Medicine
DX: M79.89 Other specified soft tissue disorders (principal); R06.02 Shortness of breath
CPT/HCPCS: 71046; 93971

== ENCOUNTER → 2020-11-08 10:01 | Outpatient (CLI) | payer BC, SELFPAY ==
[2019-08-31 11:18] VITALS: BMI 28.1
[2020-06-07 08:36] VITALS: BMI 29.7
--- NOTE | 2020-11-08 10:09 | MRI_ITS ---
HISTORY: PROSTATE CA EXAMINATION: MR Pelvis WO/W Contrast TECHNIQUE: Multiplanar and multisequence MR images of the pelvis were obtained with prostate protocol. Whole pelvis axial T2 and T1 sequences and sagittal T1 obtained with fat saturation. Small [id number] triplanar T2 and axial T1 of 10 about the prostate. Diffusion imaging and single phase postcontrast T1 imaging obtained.. IV Contrast dosage and agent: 18ml dotarem COMPARISON: CT March 04, 2012 FINDINGS: Prostate 5.3 x 5.1 x 4.9 cm (69ml). Central gland: Enlarged and diffusely heterogeneous T2 appearance without evidence of discrete mass. Smooth cephalad posterior projection on the bladder. No focal restricted diffusion or uniquely suspicious enhancement. Peripheral zone: Thin peripheral zone parenchyma with generally homogeneous T2 signal. There is focal masslike hypointense T2 signal spanning 9 mm at the superior most left prostatic base adjacent to seminal vesicle (axial T2 image 10 and sagittal T2 image 9) with mild increased signal on diffusion image 71 and decreased signal on ADC image 18, without suspicious enhancement. (PI-RADS 3). The adjacent seminal vesicles are unremarkable. In addition there is focal T1 hyperintense signal at the right inferior apex of the prostate compatible with hemorrhage, suggestive of recent biopsy. Rectoprostatic angles are unremarkable. Pelvis: Bladder is mostly decompressed, unremarkable. Diffuse colonic diverticulosis without evidence of diverticulitis. No free fluid, abscess, or evidence of adenopathy. Muscular skeletal: Normal marrow signal within the study [id number]. MRI/Pelvis W/WO Contrast IMPRESSION: Left transitional zone superior base 9 mm PI-Rad 3 lesion adjacent to seminal vesicle. Correlate with biopsy history. Right inferior prostatic apex focal hyperintense T1 signal compatible with small focal hemorrhage. Correlate with biopsy history. No evidence of extra prostatic extension of disease or adenopathy in the study [id number]. Prominent central gland hypertrophy compatible with benign prostatic hypertrophy. Colonic diverticulosis. at 2211 Reported and signed by: Tobias Swann MD Electronically Signed: Tobias Swann MD at 9:29 EDT Tel , Service support ,
[2020-11-08 10:26] LABS: CREATININE FINGERSTICK 0.8 mg/dL (0.70-1.30); EGFR FINGERSTICK > 60.0000 mL/min (>60)
== END ==
PROVIDERS: PCP Internal Medicine; Referring Provider Radiology Radiation Oncology; Visit Provider Radiology Radiation Oncology
DX: C61 Malignant neoplasm of prostate (principal)
CPT/HCPCS: 72197; A9575

== ENCOUNTER 2021-01-03 06:24 | Day surgery (SDC) | payer BC, SELFPAY ==
[2019-08-31 11:18] VITALS: BMI 28.1
[2021-01-03] VITALS (9 sets, daily range): BP systolic 69–121; BP diastolic 45–76; PULSE 62–80; RESP 16; TEMP 36.2–36.7; O2SAT 94–97; BMI 28.5
[2021-01-03] MEDS: Lactated Ringers 1,000 ML 100 ML IV ×2 (06:50→09:16)
[2021-01-03 07:45] LABS: Bedside Glucose 116 mg/dL (70-110)
[2021-01-03] MEDS: Cefazolin 2 GM in 0.9% Normal Saline 100 ML IV (08:06)
--- NOTE | 2021-01-03 08:25 | PCM.DC ---
Discharge Instructions Diet Discharge Diet: No restrictions Activity Discharge Activity: Return to Normal Activity and May Not Drive (while taking narcotic pain medications.) Dressing / Incision Call your doctor if you observe: Fever of 101 or Higher Follow Up Care Please Follow Up With: Radames Armenta MD When: Call [phone] for an appointment follow up in 6 months after radiation is done Test Results: Test results from this visit will be discussed in further detail at your follow-up appointment, if applicable. Discharge Plan Admission Primary Reason for Your Visit: prostate cancer, placement of markers and spacer Attending Provider: Radames Armenta Primary Care Provider: Rena Moore Discharge Orders/Prescriptions Prescriptions: New ciprofloxacin HCl [Cipro] 500 mg tablet 500 mg PO BID Qty: 20 RF: 0 Continued losartan 50 mg tablet 50 mg PO BID RF: 0 aspirin [Adult Low Dose Aspirin] 81 mg tablet,delayed release (DR/EC) 81 mg PO .QD RF: 0 rosuvastatin 20 mg tablet 20 mg PO QDAY RF: 0 amlodipine 5 mg tablet 5 mg PO QDAY RF: 0 metformin 500 mg tablet 1,000 mg PO BID RF: 0 levothyroxine 100 mcg tablet See Rx Instructions PO DAILY 90 Days RF: 0 carvedilol 6.25 mg tablet 6.25 mg PO BID RF: 0 cyanocobalamin (vitamin B-12) 1,000 mcg capsule 1,000 mcg PO DAILY RF: 0 Frederick 3-6-9 1,200 mg capsule 1 cap PO DAILY RF: 0 ascorbic acid (vitamin C) 1,000 MG tablet 2,000 mg PO QHS RF: 0 zinc 50 MG tablet 100 mg PO DAILY RF: 0 cholecalciferol (vitamin D3) [Vitamin D3] 125 mcg (5,000 unit) Tablet 125 mcg PO DAILY RF: 0 tamsulosin [Flomax] 0.4 mg Capsule 0.4 mg PO QHS RF: 0 Referrals / Follow Up: Rena Moore DO [Primary Care Provider] - Radames Armenta MD [STAFF PHYSICIAN] - Disposition Disposition (needs filled in before D/C Order can be placed): Home, Self Care
--- NOTE | 2021-01-03 08:27 | OP.PCM_ITS ---
Report of Operation Date of Procedure: 01/03/21 Pre-Operative Diagnosis: low risk prostate cancer Post-Operative Diagnosis: same Surgery/Procedure Performed:: placement of gold markers and spacer gel matrix for radiation planning. Description of Surgical Findings:: Patient was taken back to the operating room after smooth induction of anesthesia he was placed supine on the table. The genitals and perineum were prepped and draped in usual sterile fashion. I then introduced a biplanar ultrasound probe into the rectum and performed ultrasonography and identified the Denonvilliers' fascia the prostate mid base and apex and seminal vesicles. The spacer gel mix was then prepared on the back table per manufactures instruction. Under ultrasound guidance in the midline perineum a bevel needle down we advanced through the perineum below the prostate into the space of Denonvilliers' fascia. This space which could be identified by ultrasound with a bright white layer between the prostate and the rectum. I then injected a puff of normal saline to identify the space further. After I confirmed that the needle was in the correct space in the mid prostate and the space of Denonvilliers' fascia between the rectum and the prostate. Then over the course of 15 seconds the gel matrix was injected slowly there was nice separation between the prostate and the rectum at the gel matrix was injected. The position of the gel matrix was confirmed by ultrasound. Then the injection needle was removed intact. The penis and testicles were prepped and draped in usual sterile fashion, ultrasound probe was placed into the rectum and biplanar ultrasound was performed on the prostate. Identified the base mid and apex of the prostate identified the transition zone prostate. Then using a needle the first marker shipments was placed into the right base of the prostate, the second marker shipments was placed in the left base of the prostate, and the third core marker was placed in the right apex of the prostate after all 3 markers were placed the placement of the markers were confirmed by ultrasonography Patient's perineum was cleaned patient was taken out of stirrups and then taken back to the PACU in good condition. Surgeon: Geovany Type of Anesthesia: General Drains: none Admit VTE Documentation VTE Present on Admission: No VTE Mechan Device Prophylaxis: SCD's VTE Pharm Prophylaxis ordered?: No
--- NOTE | 2021-01-15 16:22 | HP.PCM_ITS ---
HPI - General HPI Narrative ERMA PÉREZ, is a 65 M who presents for placement of markers and spacer gel for treatment for prostate cancer [facility] Medical History (Updated 12/30/20 @ 08:38 by Yanet Bertrand) Atherosclerotic heart disease of [place] coronary artery without angina pectoris Cardiology follow-up encounter COPD (chronic obstructive pulmonary disease) COVID Diabetes mellitus DJD (degenerative joint disease) of cervical spine Essential (primary) hypertension Former smoker History of blood clotting disorder History of diverticulitis History of echocardiogram History of GI bleed History of ischemic colitis History of stress test Hyperlipidemia Hypothyroidism Lower GI bleed Nicotine abuse Nonischemic cardiomyopathy Prostate cancer Prostate disease Syncope Home Medications amlodipine 5 mg tablet 5 mg PO QDAY 05/26/17 [History Last Taken 01/03/21] aspirin 81 mg tablet,delayed release 81 mg PO .QD tab 05/26/17 [History Last Taken Unknown] losartan 50 mg tablet 50 mg PO BID tab 05/26/17 [History Last Taken 01/03/21] rosuvastatin 20 mg tablet 20 mg PO QDAY 05/26/17 [History Last Taken Unknown] ascorbic acid (vitamin C) 2,000 mg PO QHS 04/18/20 [History Last Taken Unknown] zinc 100 mg PO DAILY 04/18/20 [History Last Taken Unknown] carvedilol 6.25 mg tablet 6.25 mg PO BID tab 06/07/20 [History Last Taken 01/03/21] cyanocobalamin (vitamin B-12) 1,000 mcg capsule 1,000 mcg PO DAILY 06/07/20 [History Last Taken Unknown] fish, borage, flaxseed oils-omega 3,6,9 comb no.1 1,200 mg capsule 1 cap PO DAILY 06/07/20 [History Last Taken Unknown] levothyroxine 100 mcg tablet See Rx Instructions PO DAILY 90 Days tab 06/07/20 [History Last Taken 01/03/21] metformin 500 mg tablet 1,000 mg PO BID tab 06/07/20 [History Last Taken Unknown] cholecalciferol (vitamin D3) [Vitamin D3] 125 mcg PO DAILY 12/27/20 [History Last Taken Unknown] tamsulosin [Flomax] 0.4 mg PO QHS 12/30/20 [History Last Taken Unknown] ciprofloxacin HCl [Cipro] 500 mg PO BID #20 tab 01/03/21 [Rx Last Taken Unknown] Allergy/AdvReac Type Severity Reaction Status Date / Time No Known Allergies Allergy Verified 01/03/21 06:47 Family History Mother Diabetes Father CHF (congestive heart failure) Brother Myocardial infarction CHF (congestive heart failure) Surgical History (Updated 12/27/20 @ 15:13 by Yanet Bertrand) History of appendectomy History of colonoscopy History of intestinal surgery History of left heart catheterization (12/2004) Social History (Updated 06/07/20 @ 09:08 by Edwige MCCORMICK, PA) Smoking Status: Former smoker how long ago did patient quit smokin alcohol intake: never substance use type: does not use caffeine: Yes Type: coffee Number of servings: 2 what type of physical activity do you participate in: none seatbelt use: always do you feel safe at home: Yes Vital Signs Vital Signs Vital Signs: Weight Weight: 82.8 kg Body Mass Index (BMI) 28.5
== END 2021-01-03 09:58 | disposition home or self-care (01) ==
LOC: SDC 06:25 → AC 06:25
PROVIDERS: PCP Internal Medicine; Referring Provider Urology; Visit Provider Urology
PROC: (CPT 55874; principal; 2021-01-03 08:15)
DX: C61 Malignant neoplasm of prostate (principal); I25.10 Atherosclerotic heart disease of native coronary artery without angina pectoris; I10 Essential (primary) hypertension; E78.5 Hyperlipidemia, unspecified; J44.9 Chronic obstructive pulmonary disease, unspecified; Z87.891 Personal history of nicotine dependence; E03.9 Hypothyroidism, unspecified; Z79.82 Long term (current) use of aspirin; Z79.84 Long term (current) use of oral hypoglycemic drugs; E11.9 Type 2 diabetes mellitus without complications; Z86.16 Personal history of COVID-19
CPT/HCPCS: 55876; 82962; J7120; J2405

== ENCOUNTER → 2021-01-06 11:39 | Outpatient (CLI) | payer BC, SELFPAY ==
[2019-08-31 11:18] VITALS: BMI 28.1
[2021-01-06 14:38] LABS: Absolute Lymphocyte Count 2.38 X10^3/uL (0.83-4.51); Absolute Neutrophil Count 9.3 X10^3/uL (2.0-7.7); Basophil# 0.09 X10^3/uL; Basophil% 0.7 % (0-1); Eosinophil# 0.42 X10^3/uL; Hematocrit 41.6 % (40-54); Hemoglobin 13.2 g/dL (13.0-16.5); Lymphocyte # 2.38 X10^3/ul (0.83-4.51); Lymphocyte % 17.2 % (19-41); Mean Corp Hgb Conc 31.7 g/dL (32-36); Mean Corpuscular Hgb 28.8 pg (27.0-32.0); Mean Corpuscular Volume 90.8 fL (80-94); Mean Platelet Vol. 9.8 fl (6.2-12.0); Monocyte# 1.53 X10^3/uL; Monocyte% 11.1 % (0-10); NRBC Flagged by Analyzer 0 % (0-5); Neutrophil # 9.34 X10^3/uL (2.7-7.7); Neutrophil % 67.5 % (47-70); POSITIVE DIFFERENTIAL YES; Platelet Count 324 K/mm3 (150-450); RBC Distribution Width CV 14.2 % (11.6-14.6); RBC Distribution Width SD 47.5 fl (35.1-43.9); Red Blood Count 4.58 M/mm3 (4.6-6.2); White Blood Count 13.8 K/mm3 (4.4-11.0)
[2021-01-06 14:40] LABS: Differential Indicated SCAN CRITERIA MET
[2021-01-06 14:48] LABS: Creatinine, Serum 0.86 mg/dL (0.70-1.30); EST Glomerular Filtration Rate 95 mL/min (>60); Est Glom Filt Rate - Afr Amer 115 mL/min (>60); PSA,Total- Diagnostic 9.11 ng/mL (0.0-4.0)
[2021-01-06 15:18] LABS: Platelet Estimate ADEQUATE (ADEQ); Red Cell Morphology NORM C+C NORMAL (NORM C&C)
[2021-01-07 13:23] LABS: Pathologist Review Reviewed
== END ==
PROVIDERS: PCP Internal Medicine; Visit Provider Radiology Radiation Oncology
DX: Z01.818 Encounter for other preprocedural examination (principal); C61 Malignant neoplasm of prostate
CPT/HCPCS: 36415; 82565; 84153; 85025

== ENCOUNTER → 2021-01-07 14:47 | Outpatient (CLI) | payer BC, SELFPAY ==
[2019-08-31 11:18] VITALS: BMI 28.1
--- NOTE | 2021-01-07 14:49 | CT_ITS ---
STUDY: CT PELVIS WITH CONTRAST REASON FOR EXAM: Male, 65 years old. PROSTATE CA RAD PLANNING URETHROGRAM RADIATION DOSAGE (If Supplied By Facility): CTDIvol = ( 19.91 ) mGy, DLP = ( 1674.27 ) mGycm TECHNIQUE: Transaxial imaging of the pelvis was performed with oral contrast. 100 CC ISOVUE 300 was administered intravenously. Individualized dose optimization techniques were used for this CT. COMPARISON: None. FINDINGS: The prostate is mildly enlarged measuring 5 x 5 cm in diameter. The apex of the prostate herniates into the base of the bladder. The prostate capsule is intact and surrounding structures are unremarkable. Surgical clips are seen on the right and left sides of the prostate gland. The seminal vesicles are unremarkable by CT criteria. A catheter is present in the urethra. No contrast is seen in the urethra on this study. On the subsequent images of the pelvis obtained 12 minutes after the original scan the ureteral catheter has been removed. Normal urinary bladder. Normal visualized small intestine. There are multiple colonic diverticula of the sigmoid colon consistent with chronic diverticulosis. There is no pelvic fluid. There is no pelvic lymphadenopathy or mass lesion. There is diffuse atherosclerotic calcification of the pelvic arteries. A small fat-containing umbilical hernia is present. There are diffuse degenerative changes of the visualized lumbar spine. No visualized lytic or blastic lesions. 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 CT/CT Pelvis W/CONT Therapy IMPRESSION: 1. Mildly enlarged prostate gland. 2. Colonic diverticulosis 3. 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
== END ==
PROVIDERS: PCP Internal Medicine; Referring Provider Radiology Radiation Oncology; Visit Provider Radiology Radiation Oncology
DX: C61 Malignant neoplasm of prostate (principal)
CPT/HCPCS: 51600; 72193; Q9967

== ENCOUNTER → 2021-02-05 09:02 | Outpatient (CLI) | payer BC, SELFPAY ==
[2019-08-31 11:18] VITALS: BMI 28.1
[2021-02-05 10:21] LABS: Absolute Neutrophil Count 5.6 X10^3/uL (2.0-7.7); Basophil# 0.06 X10^3/uL; Basophil% 0.8 % (0-1); Eosinophil# 0.36 X10^3/uL; Eosinophils% 4.6 % (0-5); Hematocrit 37.4 % (40-54); Hemoglobin 12.3 g/dL (13.0-16.5); Lymphocyte % 11.4 % (19-41); Mean Corp Hgb Conc 32.9 g/dL (32-36); Mean Corpuscular Hgb 29.4 pg (27.0-32.0); Mean Corpuscular Volume 89.3 fL (80-94); Mean Platelet Vol. 9.6 fl (6.2-12.0); Monocyte# 0.94 X10^3/uL; Monocyte% 11.9 % (0-10); NRBC Flagged by Analyzer 0 % (0-5); Neutrophil # 5.62 X10^3/uL (2.7-7.7); Neutrophil % 70.9 % (47-70); Platelet Count 226 K/mm3 (150-450); RBC Distribution Width CV 14.5 % (11.6-14.6); RBC Distribution Width SD 47.3 fl (35.1-43.9); Red Blood Count 4.19 M/mm3 (4.6-6.2); White Blood Count 7.9 K/mm3 (4.4-11.0)
[2021-02-05 10:42] LABS: Hemoglobin A1c 6.4 % (3.8-5.6)
[2021-02-05 11:11] LABS: AST(SGOT) 21 U/L (15-37); Alanine Aminotransfer ALT/SGPT 27 U/L (16-61); Albumin, Serum 3.9 g/dL (3.2-5.0); Alkaline Phosphatase 70 U/L (45-117); Anion Gap 5 (5-15); BUN 13 mg/dL (7-18); BUN/Creat Ratio 18.7 RATIO (10-20); Calcium,Total 9.1 mg/dL (8.5-10.1); Chloride 102 mmol/L (98-107); Cholesterol 126 mg/dL (200); Creatinine, Serum 0.69 mg/dL (0.70-1.30); EST Glomerular Filtration Rate 121 mL/min (>60); Est Glom Filt Rate - Afr Amer 147 mL/min (>60); Globulin 3.8 g/dL (2.2-4.2); Glucose 107 mg/dL (74-106); High Density Lipoprotein 39 mg/dL; Protein, Total 7.7 g/dL (6.4-8.2); Sodium Level 135 mmol/L (136-145); Triglycerides 87 mg/dL; Very Low Density Lipoprotein 17 mg/dL (5-40)
[2021-02-05 12:18] LABS: Absolute Lymphocyte Count 0.91 X10^3/uL (0.83-4.51); Absolute Neutrophil Count 5.5 X10^3/uL (2.0-7.7); Basophil# 0.05 X10^3/uL; Basophil% 0.6 % (0-1); Eosinophil# 0.33 X10^3/uL; Eosinophils% 4.2 % (0-5); Hematocrit 38.9 % (40-54); Hemoglobin 12.3 g/dL (13.0-16.5); Lymphocyte # 0.91 X10^3/ul (0.83-4.51); Lymphocyte % 11.5 % (19-41); Mean Corp Hgb Conc 31.6 g/dL (32-36); Mean Corpuscular Hgb 28.8 pg (27.0-32.0); Mean Corpuscular Volume 91.1 fL (80-94); Monocyte# 1.07 X10^3/uL; Monocyte% 13.5 % (0-10); NRBC Flagged by Analyzer 0 % (0-5); Neutrophil # 5.52 X10^3/uL (2.7-7.7); Neutrophil % 69.6 % (47-70); Platelet Count 241 K/mm3 (150-450); RBC Distribution Width CV 14.5 % (11.6-14.6); RBC Distribution Width SD 48.1 fl (35.1-43.9); Red Blood Count 4.27 M/mm3 (4.6-6.2); White Blood Count 7.9 K/mm3 (4.4-11.0)
== END ==
PROVIDERS: Radiology Radiation Oncology; PCP Internal Medicine; Visit Provider Internal Medicine
DX: E11.65 Type 2 diabetes mellitus with hyperglycemia (principal); E78.49 Other hyperlipidemia
CPT/HCPCS: 36415; 80053; 80061; 83036; 85025

== ENCOUNTER 2021-05-28 08:26 | Outpatient (CLI) | payer BC, SELFPAY ==
[2019-08-31 11:18] VITALS: BMI 28.1
[2021-05-28 10:32] LABS: Absolute Lymphocyte Count 1.53 X10^3/uL (0.83-4.51); Basophil# 0.09 X10^3/uL; Basophil% 0.7 % (0-1); Eosinophil# 0.38 X10^3/uL; Hematocrit 39.9 % (40-54); Hemoglobin 12.7 g/dL (13.0-16.5); Lymphocyte # 1.53 X10^3/ul (0.83-4.51); Lymphocyte % 12.2 % (19-41); Mean Corp Hgb Conc 31.8 g/dL (32-36); Mean Corpuscular Hgb 29.3 pg (27.0-32.0); Mean Corpuscular Volume 92.1 fL (80-94); Mean Platelet Vol. 9.4 fl (6.2-12.0); Monocyte# 1.36 X10^3/uL; Monocyte% 10.9 % (0-10); NRBC Flagged by Analyzer 0 % (0-5); Neutrophil # 9.02 X10^3/uL (2.7-7.7); Neutrophil % 72.3 % (47-70); Platelet Count 320 K/mm3 (150-450); RBC Distribution Width CV 14.6 % (11.6-14.6); RBC Distribution Width SD 49.8 fl (35.1-43.9); Red Blood Count 4.33 M/mm3 (4.6-6.2); White Blood Count 12.5 K/mm3 (4.4-11.0)
[2021-05-28 10:45] LABS: Vitamin D,25 Hydroxy 57.8 ng/mL
[2021-05-28 10:55] LABS: Microalbumin:Creatinine Ratio 170.8 mg/g CRE (<30 mg/g CRE)
[2021-05-28 11:06] LABS: Hemoglobin A1c 6.5 % (3.8-5.6)
[2021-05-28 11:17] LABS: ALB/GLOB Ratio 1.1 RATIO (0.9-2.4); AST(SGOT) 18 U/L (15-37); Alanine Aminotransfer ALT/SGPT 30 U/L (16-61); Albumin, Serum 3.8 g/dL (3.2-5.0); Alkaline Phosphatase 65 U/L (45-117); Anion Gap 6 (5-15); BUN 20 mg/dL (7-18); BUN/Creat Ratio 23.9 RATIO (10-20); Calcium,Total 9.5 mg/dL (8.5-10.1); Chloride 102 mmol/L (98-107); Cholesterol 137 mg/dL (200); Creatinine, Serum 0.84 mg/dL (0.70-1.30); EST Glomerular Filtration Rate 98 mL/min (>60); Est Glom Filt Rate - Afr Amer 118 mL/min (>60); Globulin 3.6 g/dL (2.2-4.2); Glucose 138 mg/dL (74-106); High Density Lipoprotein 43 mg/dL; Potassium 3.6 mmol/L (3.5-5.1); Protein, Total 7.4 g/dL (6.4-8.2); Sodium Level 137 mmol/L (136-145); Thyroid Stim Hormone (TSH) 2.09 uIU/mL (0.358-3.74); Triglycerides 164 mg/dL; Very Low Density Lipoprotein 33 mg/dL (5-40)
== END 2021-05-28 23:59 | disposition home or self-care (01) ==
LOC: BIMLAB 08:27
PROVIDERS: PCP Internal Medicine; Referring Provider Internal Medicine; Visit Provider Internal Medicine
DX: E11.9 Type 2 diabetes mellitus without complications (principal); E78.49 Other hyperlipidemia; E55.9 Vitamin D deficiency, unspecified; E04.1 Nontoxic single thyroid nodule
CPT/HCPCS: 36415; 80053; 80061; 82043; 82306; 82570; 83036; 84443; 85025

== ENCOUNTER → 2021-09-18 | Outpatient (CLI) | payer BC, SELFPAY ==
[2019-08-31 11:18] VITALS: BMI 28.1
[2021-09-18 08:09] LABS: Absolute Lymphocyte Count 0.88 X10^3/uL (0.83-4.51); Absolute Neutrophil Count 9.3 X10^3/uL (2.0-7.7); Basophil# 0.07 X10^3/uL; Basophil% 0.6 % (0-1); Eosinophil# 0.35 X10^3/uL; Hematocrit 40.1 % (40-54); Hemoglobin 12.8 g/dL (13.0-16.5); Lymphocyte # 0.88 X10^3/ul (0.83-4.51); Lymphocyte % 7.5 % (19-41); Mean Corp Hgb Conc 31.9 g/dL (32-36); Mean Corpuscular Hgb 29.4 pg (27.0-32.0); Mean Corpuscular Volume 92.2 fL (80-94); Mean Platelet Vol. 9.8 fl (6.2-12.0); Monocyte# 1.14 X10^3/uL; Monocyte% 9.7 % (0-10); NRBC Flagged by Analyzer 0 % (0-5); Neutrophil # 9.28 X10^3/uL (2.7-7.7); Neutrophil % 78.7 % (47-70); Platelet Count 247 K/mm3 (150-450); RBC Distribution Width CV 14.1 % (11.6-14.6); Red Blood Count 4.35 M/mm3 (4.6-6.2); White Blood Count 11.8 K/mm3 (4.4-11.0)
[2021-09-18 08:33] LABS: Vitamin D,25 Hydroxy 67.7 ng/mL
[2021-09-18 08:36] LABS: Hemoglobin A1c 6.4 % (3.8-5.6)
[2021-09-18 08:42] LABS: ALB/GLOB Ratio 1.1 RATIO (0.9-2.4); AST(SGOT) 18 U/L (15-37); Alanine Aminotransfer ALT/SGPT 25 U/L (16-61); Albumin, Serum 4.1 g/dL (3.2-5.0); Alkaline Phosphatase 70 U/L (45-117); Anion Gap 3 (5-15); BUN 15 mg/dL (7-18); BUN/Creat Ratio 20.1 RATIO (10-20); Calcium,Total 9.4 mg/dL (8.5-10.1); Chloride 107 mmol/L (98-107); Cholesterol 127 mg/dL (200); Creatinine, Serum 0.75 mg/dL (0.70-1.30); EST Glomerular Filtration Rate 111 mL/min (>60); Est Glom Filt Rate - Afr Amer 134 mL/min (>60); Globulin 3.6 g/dL (2.2-4.2); Glucose 113 mg/dL (74-106); High Density Lipoprotein 36 mg/dL; Potassium 4.1 mmol/L (3.5-5.1); Protein, Total 7.7 g/dL (6.4-8.2); Sodium Level 138 mmol/L (136-145); Triglycerides 109 mg/dL; Very Low Density Lipoprotein 22 mg/dL (5-40)
--- NOTE | 2021-09-18 11:50 | US_ITS ---
STUDY: THYROID ULTRASOUND REASON FOR EXAM: Male, 65 years old. NODULE TECHNIQUE: Ultrasound evaluation of the thyroid was performed with real-time and static rocha-scale imaging. COMPARISON: Feb 02 2020 4:13pm FINDINGS: RIGHT LOBE: The right lobe of the thyroid gland measures 4 x 1.9 cm. There is a homogeneous echotexture. There are no demonstrated solid, cystic or complex lesions. LEFT LOBE: The left lobe of the thyroid gland measures 3.5 x 1.3 cm. There is a homogeneous echotexture. 2 nodules visualized. Nodule 1. A solid measuring 8 x 7 x 4 mm. Nodule 2 is cystic measuring 3 x 3 x 3 mm. ISTHMUS: The isthmus measures 1 mm. US/Thyroid IMPRESSION: Nodule1 on the left: Stable in size. This nodule is solid or almost completely solid, hyperechoic or isoechoic, cbghk-pchn-rpsy, smoothly marginated and contains no echogenic foci. TI-RADS points: 3. TI-RADS category: TR3. This nodule is mildly suspicious but no FNA or follow-up is necessary given the small size of this nodule. Left nodule #2. This nodule is cystic or nearly completely cystic. TI-RADS points: 0. TI-RADS category: TR1. This nodule is benign and no FNA or follow-up is necessary. Electronically Signed: Quan Dobson MD at 15:17 EDT ,
== END | disposition home or self-care (01) ==
LOC: US 11:48
PROVIDERS: PCP Internal Medicine; Referring Provider Internal Medicine; Visit Provider Internal Medicine
DX: E11.9 Type 2 diabetes mellitus without complications (principal); E78.49 Other hyperlipidemia; I11.9 Hypertensive heart disease without heart failure; E55.9 Vitamin D deficiency, unspecified; E04.1 Nontoxic single thyroid nodule
CPT/HCPCS: 36415; 76536; 80053; 80061; 82306; 83036; 85025

== ENCOUNTER → 2021-10-13 | Outpatient (CLI) | payer BC, SELFPAY ==
[2019-08-31 11:18] VITALS: BMI 28.1
[2021-10-13 18:28] LABS: PSA,Total- Diagnostic 2.71 ng/mL (0.0-4.0)
== END | disposition home or self-care (01) ==
LOC: LAB 15:01
PROVIDERS: PCP Internal Medicine; Visit Provider Urology
DX: C61 Malignant neoplasm of prostate (principal)
CPT/HCPCS: 36415; 84153

== ENCOUNTER → 2022-01-09 | Outpatient (CLI) | payer BC, SELFPAY ==
[2019-08-31 11:18] VITALS: BMI 28.1
== END | disposition home or self-care (01) ==
LOC: PSN 06:24
PROVIDERS: PCP Internal Medicine; Referring Provider Internal Medicine; Visit Provider Internal Medicine
DX: I49.9 Cardiac arrhythmia, unspecified (principal); R94.2 Abnormal results of pulmonary function studies
CPT/HCPCS: 93225; 93226

== ENCOUNTER → 2022-03-19 | Outpatient (CLI) | payer BC, SELFPAY ==
[2019-08-31 11:18] VITALS: BMI 28.1
--- NOTE | 2022-03-19 08:10 | RAD_ITS ---
STUDY: X-RAY CHEST REASON FOR EXAM: Male, 66 years old. ABNORMAL LUNG FUNCTION TEST TECHNIQUE: XR Chest 2 Views COMPARISON: Study done earlier today. FINDINGS: There is atherosclerotic calcification of the aortic arch with tortuosity. There are diffuse degenerative changes of the visualized thoracic spine. There is degenerative osteoarthritis of the bilateral shoulders. There is no demonstrated pleural abnormality. Normal size heart. Normal mediastinum and elle. Normal visualized pulmonary arteries. There is no demonstrated abnormality of the visualized soft tissue structures of the upper abdomen. RAD/Chest PA and Lateral IMPRESSION: There are no acute findings. Electronically Signed: Quan Dobson MD at 16:53 EST ,
== END | disposition home or self-care (01) ==
LOC: RAD 08:26
PROVIDERS: PCP Internal Medicine; Visit Provider Internal Medicine
DX: R94.2 Abnormal results of pulmonary function studies (principal)
CPT/HCPCS: 71046

== ENCOUNTER → 2022-04-02 | Outpatient (CLI) | payer BC, SELFPAY ==
[2019-08-31 11:18] VITALS: BMI 28.1
--- NOTE | 2022-04-02 15:29 | PFTCOMP ---
COMPLETE PULMONARY FUNCTION TEST INTERPRETATION Brief HPI: Patient is a 66-year-old male, currently under the care of Dr. Moore, who presents to [facility] for complete pulmonary function tests secondary to diagnosis of arrhythmia. Respiratory therapist reports good effort and reproducible results. Interpretation: Forced expiration spirometry shows a mild large airways obstructive ventilatory defect with an FEV1 of 73% predicted. There is no significant bronchodilator response by strict ATS criteria. Spirograms are of good quality and plateau slowly, indicating slowly emptying areas of the lungs. The respiratory flow volume loop shows decreased expiratory flow rates at all lung volumes consistent with airway obstruction. Lung volumes by body plethysmography show a normal total lung capacity at 6.44 L, 110% predicted. All other lung volumes are at the upper limits of normal. Diffusion capacity by carbon monoxide is decreased at 56% predicted. The airway resistance is normal. Compared to previous pulmonary function tests from 06/30/2017, there is been a significant reduction in DLCO by 26% and worsening air trapping. Impression: Irreversible mild large airways obstructive ventilatory defect with a disproportionate reduction in diffusion capacity and worsening compared to 2018.
== END | disposition home or self-care (01) ==
LOC: PSN 13:04
PROVIDERS: PCP Internal Medicine; Referring Provider Internal Medicine; Visit Provider Internal Medicine
DX: R94.2 Abnormal results of pulmonary function studies (principal); I42.9 Cardiomyopathy, unspecified; I49.9 Cardiac arrhythmia, unspecified
CPT/HCPCS: 94060; 94726; 94729

== ENCOUNTER → 2022-04-22 | Outpatient (CLI) | payer BC, SELFPAY ==
[2019-08-31 11:18] VITALS: BMI 28.1
--- NOTE | 2022-04-22 08:41 | CDU_ITS ---
Reason For Study: Bilateral Carotid Stenosis Rt. Velocities/BP Lt. Velocities/BP Prox CCA 74/16 cm/sec. Prox CCA 88/15 cm/sec. Mid CCA 66/12 cm/sec. Mid CCA 78/15 cm/sec. Dist CCA 57/15 cm/sec. Dist CCA 78/18 cm/sec. Prox ICA 67/17 cm/sec. Prox ICA 47/16 cm/sec. Mid ICA 59/16 cm/sec. Mid ICA 92/25 cm/sec. Dist ICA 95/29 cm/sec. Dist ICA 99/27 cm/sec. Rt. ICA/CCA = 1.4. Lt. ICA/CCA = 1.3. Prox ECA 72/8 cm/sec. Prox ECA 61/10 cm/sec. Rt. Vert. 43/20 cm/sec. Lt. Vert. 42/13 cm/sec. Right Extracranial There is intimal thickening but no significant atherosclerotic plaque noted in the right common carotid artery. There is heterogeneous, irregular atherosclerotic plaque noted in the right internal carotid artery. There is intimal thickening but no significant atherosclerotic plaque noted in the right external carotid artery. Antegrade flow is noted in the right vertebral artery. Left Extracranial There is intimal thickening but no significant atherosclerotic plaque noted in the left common carotid artery. There is heterogeneous, irregular atherosclerotic plaque noted in the left internal carotid artery. There is intimal thickening but no significant atherosclerotic plaque noted in the left external carotid artery. Antegrade flow is noted in the left vertebral artery. Procedure Carotid Duplex [id number]. This is a Carotid Duplex examination using B-mode, color flow and specral Doppler. Exam performed in department. VL/Carotid Duplex Ultrasound Interpretation Summary Irregular calcific plaque with shadowing at the proximal right internal carotid artery with less than 50% stenosis Less than 50% stenosis right external carotid artery Irregular calcific plaque at the proximal left internal carotid artery with les s than 50% stenosis Less than 50% stenosis left external carotid artery Patent and antegrade vertebral arteries bilaterally No change from a blood flow screening examination of March 19, 2022 Ordering Physician: Rena Moore Referring Physician: Rena Moore Performed By: Oralia Marr, DEANNA, RVT
--- NOTE | 2022-04-22 08:41 | ECHOD_ITS ---
Reason For Study: CMP Procedure This was a 2D Doppler, Color Flow transthoracic echocardiogram. Exam performed in department. Left Ventricle Normal LV size. Mild concentric left ventricular hypertrophy. Left ventricular systolic function is normal. The estimated ejection fraction is 65 %. Stage 1 diastolic dysfunction. No regional wall motion abnormalities noted. Right Ventricle Normal RV size. Normal systolic function. Atria Normal left atrium. Normal right atrium. Mitral Valve There is mild mitral annular calcification. Tricuspid Valve Normal tricuspid valve. Aortic Valve Trisinus/trileaflet aortic valve. Mild focal aortic valve calcification. Pulmonic Valve Normal pulmonic valve. Great Vessels Normal aortic root. The pulmonary artery is normal size. Normal inferior vena cava. Pericardium/Pleural No pericardial effusion. MMode/2D Measurements & Calculations LVIDd: 4.4 cm IVSd: 1.3 cm LAV(MOD-bp): 61.3 ml LVIDs: 2.9 cm LVPWd: 1.3 cm LAV(MOD-bp) Indexed: 31.6 ml/m2 RVDd: 3.5 cm FS: 35.2 % LAV(MOD-sp2): 75.7 ml LAV(MOD-sp4): 48.0 ml SV(MOD-sp4): 46.5 ml LVAd ap4: 28.6 cm2 LVAd ap2: 32.8 cm2 LVLd ap4: 8.6 cm LVLd ap2: 8.8 cm EDV(MOD-sp4): 80.6 ml EDV(MOD-sp2): 106.4 ml EDV(sp4-el): 81.4 ml EDV(sp2-el): 104.2 ml LVAs ap4: 15.9 cm2 LVAs ap2: 18.9 cm2 LVLs ap4: 6.7 cm LVLs ap2: 7.6 cm ESV(MOD-sp4): 34.1 ml ESV(MOD-sp2): 44.2 ml ESV(sp4-el): 32.0 ml ESV(sp2-el): 39.8 ml EF(MOD-sp4): 57.7 % EF(MOD-sp2): 58.5 % EF(sp4-el): 60.7 % SV(MOD-sp2): 62.2 ml SV(sp4-el): 49.4 ml LA A4 area: 18.7 cm2 LA dimension(2D): 3.7 cm RA A4 area: 15.6 cm2 Time Measurements MV dec time: 0.23 sec Doppler Measurements & Calculations MV E max ameya: 60.5 cm/sec Lat Peak E' Ameya: 9.5 cm/sec Med Peak E' Ameya: 9.5 cm/sec MV A max ameya: 66.3 cm/sec E/E' lat: 6.3 E/E' med: 6.3 MV E/A: 0.91 MV V2 max: 66.0 cm/sec MV dec slope: 292.2 cm/sec2 Ao V2 max: 120.0 cm/sec MV max P.7 mmHg Ao max P.8 mmHg MV V2 mean: 42.5 cm/sec Ao V2 mean: 85.0 cm/sec MV mean P.80 mmHg Ao mean P.3 mmHg MV V2 VTI: 24.2 cm Ao V2 VTI: 28.0 cm AV (velocity ratio): 0.75 LV V1 max: 94.3 cm/sec PA V2 max: 63.0 cm/sec LV V1 max P.6 mmHg PA V2 mean: 41.0 cm/sec LV V1 mean P.8 mmHg LV V1 mean: 62.1 cm/sec LV V1 VTI: 21.1 cm ECHO/Echo Complete Interpretation Summary Normal LV size. Left ventricular systolic function is normal. The estimated ejection fraction is 65 %. Mild concentric left ventricular hypertrophy. Stage 1 diastolic dysfunction. There is mild mitral annular calcification. Mild focal aortic valve calcification. Ordering Physician: Rena Moore Referring Physician: Rena Moore Performed By: Loli Sams RCS
== END | disposition home or self-care (01) ==
PROVIDERS: PCP Internal Medicine; Referring Provider Internal Medicine; Visit Provider Internal Medicine
DX: I65.23 Occlusion and stenosis of bilateral carotid arteries (principal); I42.9 Cardiomyopathy, unspecified; I49.9 Cardiac arrhythmia, unspecified; R94.2 Abnormal results of pulmonary function studies
CPT/HCPCS: 93306; 93880

== ENCOUNTER → 2022-07-18 | Outpatient (CLI) | payer BC, SELFPAY ==
[2019-08-31 11:18] VITALS: BMI 28.1
[2022-07-18 08:31] LABS: Absolute Lymphocyte Count 0.98 X10^3/uL (0.83-4.51); Absolute Neutrophil Count 9.2 X10^3/uL (2.0-7.7); Basophil# 0.03 X10^3/uL; Basophil% 0.3 % (0-1); Eosinophils% 2.6 % (0-5); Hematocrit 39.7 % (40-54); Hemoglobin 12.6 g/dL (13.0-16.5); Lymphocyte # 0.98 X10^3/ul (0.83-4.51); Lymphocyte % 8.5 % (19-41); Mean Corp Hgb Conc 31.7 g/dL (32-36); Mean Corpuscular Hgb 29.7 pg (27.0-32.0); Mean Corpuscular Volume 93.6 fL (80-94); Mean Platelet Vol. 9.3 fl (6.2-12.0); Monocyte# 1.05 X10^3/uL; Monocyte% 9.1 % (0-10); NRBC Flagged by Analyzer 0 % (0-5); Neutrophil # 9.15 X10^3/uL (2.7-7.7); Platelet Count 255 K/mm3 (150-450); RBC Distribution Width CV 14.6 % (11.6-14.6); RBC Distribution Width SD 50.1 fl (35.1-43.9); Red Blood Count 4.24 M/mm3 (4.6-6.2); White Blood Count 11.6 K/mm3 (4.4-11.0)
[2022-07-18 08:56] LABS: Cholesterol 98 mg/dL (200); High Density Lipoprotein 36 mg/dL; Triglycerides 57 mg/dL; Very Low Density Lipoprotein 11 mg/dL (5-40)
[2022-07-18 09:01] LABS: Hemoglobin A1c 5.9 % (3.8-5.6)
== END | disposition home or self-care (01) ==
LOC: LAB 08:12
PROVIDERS: PCP Internal Medicine; Visit Provider Internal Medicine
DX: E11.9 Type 2 diabetes mellitus without complications (principal); E78.49 Other hyperlipidemia; D50.9 Iron deficiency anemia, unspecified
CPT/HCPCS: 36415; 80061; 83036; 85025

== ENCOUNTER → 2022-07-25 | Outpatient (CLI) | payer BC, SELFPAY ==
[2019-08-31 11:18] VITALS: BMI 28.1
--- NOTE | 2022-07-25 07:48 | CT_ITS ---
INDICATION: SOB EXAMINATION: CT CHEST WITHOUT CONTRAST - CT Chest W/O Contrast Injection TECHNIQUE: Helically acquired images were obtained of the chest. A radiation dose optimization technique was used for this scan. IV Contrast dosage and agent: None. COMPARISON: None. FINDINGS: LUNGS, PLEURA AND LARGE AIRWAYS: Mild emphysema. Some bibasilar linear scarring. No noncalcified nodule or mass. No pleural effusion or thickening. No pneumothorax. THYROID: No thyroid lesions. HEART AND PERICARDIUM: Cardiomegaly. No pericardial effusion. CORONARY ARTERIES: Coronary artery calcification is seen. VESSELS: Thoracic aorta is not dilated. MEDIASTINUM AND MARTHA: No mediastinal or hilar adenopathy. Esophagus is unremarkable. No hiatal hernia. UPPER ABDOMEN: No acute pathology. BONES: No suspicious lytic or blastic abnormality. CT/Chest without Contrast IMPRESSION: Mild emphysema without pneumonia, atelectasis, nodule, or mass. Cardiomegaly. Electronically Signed: Rigoberto Mitchell MD at 23:56 EDT ,
== END | disposition home or self-care (01) ==
LOC: CT 07:45
PROVIDERS: PCP Internal Medicine; Referring Provider Internal Medicine Pulmonary Disease; Visit Provider Internal Medicine Pulmonary Disease
DX: R06.02 Shortness of breath (principal)
CPT/HCPCS: 71250

== ENCOUNTER → 2022-10-10 | Outpatient (CLI) | payer BC, SELFPAY ==
[2019-08-31 11:18] VITALS: BMI 28.1
[2022-10-10 11:09] LABS: PSA,Total- Diagnostic 2.53 ng/mL (0.0-4.0)
== END | disposition home or self-care (01) ==
LOC: LAB 10:03
PROVIDERS: PCP Internal Medicine; Visit Provider Registered Nurse
DX: C61 Malignant neoplasm of prostate (principal)
CPT/HCPCS: 36415; 84153

== ENCOUNTER → 2022-11-20 | Outpatient (CLI) | payer BC, SELFPAY ==
[2019-08-31 11:18] VITALS: BMI 28.1
[2022-11-20 06:37] LABS: Absolute Lymphocyte Count 1.11 X10^3/uL (0.83-4.51); Absolute Neutrophil Count 8.8 X10^3/uL (2.0-7.7); Basophil# 0.08 X10^3/uL; Basophil% 0.7 % (0-1); Eosinophil# 0.34 X10^3/uL; Hematocrit 39.1 % (40-54); Hemoglobin 12.8 g/dL (13.0-16.5); Lymphocyte # 1.11 X10^3/ul (0.83-4.51); Lymphocyte % 9.7 % (19-41); Mean Corp Hgb Conc 32.7 g/dL (32-36); Mean Corpuscular Hgb 30.1 pg (27.0-32.0); Mean Platelet Vol. 9.1 fl (6.2-12.0); Monocyte# 1.06 X10^3/uL; Monocyte% 9.3 % (0-10); NRBC Flagged by Analyzer 0 % (0-5); Neutrophil % 76.9 % (47-70); Platelet Count 254 K/mm3 (150-450); RBC Distribution Width CV 14.4 % (11.6-14.6); RBC Distribution Width SD 48.4 fl (35.1-43.9); Red Blood Count 4.25 M/mm3 (4.6-6.2); White Blood Count 11.4 K/mm3 (4.4-11.0)
[2022-11-20 07:18] LABS: ALB/GLOB Ratio 1.1 RATIO (0.9-2.4); AST(SGOT) 13 U/L (15-37); Alanine Aminotransfer ALT/SGPT 24 U/L (16-61); Alkaline Phosphatase 62 U/L (45-117); Anion Gap 5 (5-15); BUN 15 mg/dL (7-18); BUN/Creat Ratio 20.5 RATIO (10-20); Calcium,Total 9.3 mg/dL (8.5-10.1); Chloride 105 mmol/L (98-107); Cholesterol 104 mg/dL (200); Creatinine, Serum 0.73 mg/dL (0.70-1.30); EST Glomerular Filtration Rate 113 mL/min (>60); Est Glom Filt Rate - Afr Amer 137 mL/min (>60); Ferritin 20 ng/mL (26-388); Globulin 3.6 g/dL (2.2-4.2); Glucose 116 mg/dL (74-106); High Density Lipoprotein 36 mg/dL; Iron 42 ug/dL (65-175); Potassium 3.8 mmol/L (3.5-5.1); Protein, Total 7.6 g/dL (6.4-8.2); Sodium Level 139 mmol/L (136-145); Triglycerides 81 mg/dL; Very Low Density Lipoprotein 16 mg/dL (5-40)
[2022-11-20 08:24] LABS: Hemoglobin A1c 6.2 % (3.8-5.6)
[2022-11-20 08:38] LABS: Vitamin D,25 Hydroxy 73.3 ng/mL
== END | disposition home or self-care (01) ==
LOC: LAB 06:10
PROVIDERS: PCP Internal Medicine; Referring Provider Internal Medicine; Visit Provider Internal Medicine
DX: E11.9 Type 2 diabetes mellitus without complications (principal); C61 Malignant neoplasm of prostate; E78.49 Other hyperlipidemia; E55.9 Vitamin D deficiency, unspecified; D50.9 Iron deficiency anemia, unspecified; R35.0 Frequency of micturition
CPT/HCPCS: 36415; 80053; 80061; 82043; 82306; 82570; 82728; 83036; 83540; 84153; 85025; 87086

== ENCOUNTER → 2022-12-09 | Outpatient (CLI) | payer BC, SELFPAY ==
[2019-08-31 11:18] VITALS: BMI 28.1
--- NOTE | 2022-12-09 14:30 | US_ITS ---
STUDY: THYROID ULTRASOUND REASON FOR EXAM: Male, 67 years old. thyroid nodule TECHNIQUE: Ultrasound evaluation of the thyroid was performed with real-time and static rocha-scale imaging. COMPARISON: 09/18/2021. FINDINGS: RIGHT LOBE: The right lobe of the thyroid gland measures 4.0 x 1.2 x 1.6 cm. There is a homogeneous echotexture. There are no demonstrated solid, cystic or complex lesions. LEFT LOBE: The left lobe of the thyroid gland measures 3.7 x 1.3 x 1.1 cm. There is a homogeneous echotexture. Stable complex primarily solid 9 mm nodule of the left thyroid lobe. ISTHMUS: The isthmus measures 2 mm . The regional lymph nodes are normal. US/Thyroid IMPRESSION: Stable 9 mm nodule of the left thyroid lobe. Electronically Signed: Avtar Holbrook MD at 19:53 EDT ,
--- NOTE | 2022-12-09 14:31 | CT_ITS ---
STUDY: CT ABDOMEN AND PELVIS WITHOUT CONTRAST REASON FOR EXAM: Male, 67 years old. GROSS HEMATURIA RADIATION DOSAGE (If Supplied By Facility): CTDIvol = ( 7.20 ) mGy, DLP = ( 435.17 ) mGycm TECHNIQUE: Transaxial images were obtained from the dome of the diaphragm to the symphysis pubis without oral contrast, and without intravenous contrast. Sagittal and coronal images were reconstructed. Individualized dose optimization techniques were used for this CT. COMPARISON: None. FINDINGS: Mild increased markings at the lung bases slightly more prominent on the right side suggestive of scarring. Coronary artery calcification. Normal liver. I suspect small gallstones in the dependent portion of the gallbladder lumen. Normal spleen. Normal pancreas. Normal bilateral adrenal glands. There is a 2.7 cm x 3.4 cm cyst in the lateral aspect of the right kidney. Normal left kidney. Normal visualized stomach. Normal small intestine. There are multiple colonic diverticula consistent with diverticulosis. There are surgical clips in the region of the appendix consistent with a prior appendectomy. There is diffuse atherosclerotic calcification of the abdominal aorta and its major visceral branches. Mild dilatation of the infrarenal abdominal aorta with a transverse dimension of 2.6 cm. Normal inferior vena cava. Normal retroperitoneum. There is diffuse bladder wall thickening. The bladder is of a small capacity. There is enlargement of the prostate gland. The prostate measures 4.9 cm x 5 cm. Metallic radial therapeutic pellets are seen within it. There is prominence of the seminal vesicles. There is a small umbilical hernia containing fat. There are mild degenerative changes of the visualized lumbar spine. CT/Abdomen/Pelvis without Cont IMPRESSION: Prostatic enlargement with indentation of the bladder base. Diffuse urinary bladder wall thickening. Stable right renal cyst. Electronically Signed: Andrea Mcdonald MD at 15:30 EDT ,
== END | disposition home or self-care (01) ==
LOC: CT 14:29
PROVIDERS: PCP Internal Medicine; Referring Provider Urology; Visit Provider Urology
DX: R31.0 Gross hematuria (principal)
CPT/HCPCS: 74176; 76536

== ENCOUNTER → 2023-05-06 | Outpatient (CLI) | payer BC, SELFPAY ==
[2019-08-31 11:18] VITALS: BMI 28.1
--- NOTE | 2023-05-06 14:26 | CDU_ITS ---
Reason For Study: carotid stenosis Rt. Velocities/BP Lt. Velocities/BP Prox CCA 70.2/14.5 cm/sec. Prox CCA 91.9/19.2 cm/sec. Mid CCA 76.8/14.5 cm/sec. Mid CCA 79.6/19.2 cm/sec. Dist CCA 74.0/18.2 cm/sec. Dist CCA 70.2/12.6 cm/sec. Prox ICA 85.3/22.0 cm/sec. Prox ICA 83.4/30.5 cm/sec. Mid ICA 73.0/24.8 cm/sec. Mid ICA 71.1/26.7 cm/sec. Dist ICA 72.1/25.8 cm/sec. Dist ICA 83.4/31.5 cm/sec. Rt. ICA/CCA = 1.1. Lt. ICA/CCA = 1.0. Prox ECA 65.5/10.7 cm/sec. Prox ECA 68.3/8.8 cm/sec. Rt. Vert. 65.5/24.8 cm/sec. Lt. Vert. 46.6/13.5 cm/sec. Right Extracranial There is intimal thickening but no significant atherosclerotic plaque noted in the right common carotid artery. There is heterogeneous, irregular atherosclerotic plaque noted in the right internal carotid artery. There is intimal thickening but no significant atherosclerotic plaque noted in the right external carotid artery. Antegrade flow is noted in the right vertebral artery. Left Extracranial There is intimal thickening but no significant atherosclerotic plaque noted in the left common carotid artery. There is heterogeneous, irregular atherosclerotic plaque noted in the left internal carotid artery. There is intimal thickening but no significant atherosclerotic plaque noted in the left external carotid artery. Antegrade flow is noted in the left vertebral artery. Procedure Carotid Duplex [id number]. This is a Carotid Duplex examination using B-mode, color flow and specral Doppler. The exam was diagnostic. Exam performed in department. VL/Carotid Duplex Ultrasound Interpretation Summary Mild (<50%) stenosis right extracranial internal carotid. Mild (<50%) stenosis left extracranial internal carotid. Patent and antegrade vertebrals bilaterally. Ordering Physician: Rena Moore Performed By: Bhanu Russell RVT
== END | disposition home or self-care (01) ==
LOC: CVS 14:26
PROVIDERS: PCP Internal Medicine; Referring Provider Internal Medicine; Visit Provider Internal Medicine
DX: I65.23 Occlusion and stenosis of bilateral carotid arteries (principal)
CPT/HCPCS: 93880

== ENCOUNTER → 2023-05-24 | Outpatient (CLI) | payer BC, SELFPAY ==
[2019-08-31 11:18] VITALS: BMI 28.1
--- NOTE | 2023-05-24 06:58 | CT_ITS ---
STUDY: CT ABDOMEN AND PELVIS WITH CONTRAST REASON FOR EXAM: Male, 67 years old. 25 pound weight loss in 6 months. History of prostate cancer and radiation therapy. RADIATION DOSAGE (If Supplied By Facility): CTDIvol = ( 13.32 ) mGy, DLP = ( 665.17 ) mGycm TECHNIQUE: Transaxial images were obtained from the dome of the diaphragm to the symphysis pubis without oral contrast. IV 100mL Isovue-370 was administered. Sagittal and coronal images were reconstructed. Individualized dose optimization techniques were used for this CT. COMPARISON: Comparison is made with prior study dated December 09, 2022. FINDINGS: Stable increased linear markings at the lung bases suggestive of scarring. Coronary artery calcification. There is decreased attenuation of the liver consistent with steatosis. Normal gallbladder and extrahepatic biliary system. Normal spleen. Normal pancreas. Normal bilateral adrenal glands. There is a 3.8 cm cyst in the lateral upper pole of the right kidney. Normal left kidney. Normal visualized stomach. Normal small intestine. There are multiple colonic diverticula consistent with diverticulosis. The appendix is visualized and appears normal. There is diffuse atherosclerotic calcification of the abdominal aorta. The distal abdominal aorta as a transverse dimension of 2.5 cm. Normal inferior vena cava. Normal retroperitoneum. Diffuse bladder wall thickening. Heterogeneous enlargement of the prostate with indentation at the bladder base. The prostate measures 4.7 cm x 5.3 cm. Metallic radiation seeds are seen within the prostate. Prominence of the seminal vesicles. There is a small umbilical hernia containing fat. There are degenerative changes of the visualized lumbar spine. CT/Abdomen/Pelvis WITH Contrast IMPRESSION: Diffuse heterogeneous enlargement of the prostate with indentation of the bladder base. Diffuse thickening of the urinary bladder wall. Fatty infiltration of the liver. Stable right renal cyst. Electronically Signed: Andrea Mcdonald MD at 8:57 EST ,
[2023-05-24 07:28] LABS: CREATININE FINGERSTICK < 1.0 mg/dL (0.70-1.30); EGFR FINGERSTICK > 60.0000 mL/min (>60)
== END | disposition home or self-care (01) ==
LOC: CT 06:58
PROVIDERS: PCP Internal Medicine; Referring Provider Internal Medicine; Visit Provider Internal Medicine
DX: Z01.812 Encounter for preprocedural laboratory examination (principal); R63.4 Abnormal weight loss
CPT/HCPCS: 74177; Q9967

== ENCOUNTER → 2023-06-08 | Outpatient (CLI) | payer BC, SELFPAY ==
[2019-08-31 11:18] VITALS: BMI 28.1
[2023-06-08 09:23] LABS: Erythrocyte Sedimentation Rate 4 mm/hr (0-20)
[2023-06-08 09:25] LABS: Absolute Lymphocyte Count 0.95 X10^3/uL (0.83-4.51); Absolute Neutrophil Count 6.6 X10^3/uL (2.0-7.7); Basophil# 0.07 X10^3/uL; Basophil% 0.8 % (0-1); Eosinophils% 3.4 % (0-5); Hematocrit 39.8 % (40-54); Lymphocyte # 0.95 X10^3/ul (0.83-4.51); Lymphocyte % 10.8 % (19-41); Mean Corp Hgb Conc 32.7 g/dL (32-36); Mean Corpuscular Hgb 30.2 pg (27.0-32.0); Mean Corpuscular Volume 92.3 fL (80-94); Mean Platelet Vol. 9.7 fl (6.2-12.0); Monocyte# 0.83 X10^3/uL; Monocyte% 9.4 % (0-10); NRBC Flagged by Analyzer 0 % (0-5); Neutrophil # 6.64 X10^3/uL (2.7-7.7); Neutrophil % 75.3 % (47-70); Platelet Count 245 K/mm3 (150-450); RBC Distribution Width CV 13.5 % (11.6-14.6); RBC Distribution Width SD 46.4 fl (35.1-43.9); Red Blood Count 4.31 M/mm3 (4.6-6.2); White Blood Count 8.8 K/mm3 (4.4-11.0)
[2023-06-08 10:02] LABS: ALB/GLOB Ratio 1.2 RATIO (0.9-2.4); AST(SGOT) 19 U/L (15-37); Alanine Aminotransfer ALT/SGPT 25 U/L (16-61); Alkaline Phosphatase 60 U/L (45-117); Anion Gap 5 (5-15); BUN 16 mg/dL (7-18); BUN/Creat Ratio 21.4 RATIO (10-20); CRP < 2.90 mg/L (0.0-3.0); Calcium,Total 9.5 mg/dL (8.5-10.1); Chloride 106 mmol/L (98-107); Cholesterol 118 mg/dL (200); Creatinine, Serum 0.75 mg/dL (0.70-1.30); EST Glomerular Filtration Rate 110 mL/min (>60); Est Glom Filt Rate - Afr Amer 134 mL/min (>60); Ferritin 27 ng/mL (26-388); Globulin 3.3 g/dL (2.2-4.2); Glucose 99 mg/dL (74-106); High Density Lipoprotein 39 mg/dL; Iron 79 ug/dL (65-175); PSA,Total - Annual Screen 1.79 ng/mL (0.00-4.00); Potassium 3.8 mmol/L (3.5-5.1); Protein, Total 7.3 g/dL (6.4-8.2); Sodium Level 141 mmol/L (136-145); Triglycerides 67 mg/dL; Very Low Density Lipoprotein 13 mg/dL (5-40)
[2023-06-08 11:49] LABS: Hemoglobin A1c 5.9 % (3.8-5.6)
== END | disposition home or self-care (01) ==
LOC: LAB 08:07
PROVIDERS: PCP Internal Medicine; Referring Provider Internal Medicine; Visit Provider Internal Medicine
DX: R63.4 Abnormal weight loss (principal); E11.21 Type 2 diabetes mellitus with diabetic nephropathy; C61 Malignant neoplasm of prostate; R19.5 Other fecal abnormalities; E55.9 Vitamin D deficiency, unspecified; I25.10 Atherosclerotic heart disease of native coronary artery without angina pectoris
CPT/HCPCS: 36415; 80053; 80061; 82043; 82306; 82570; 82728; 83036; 83540; 84153; 85025; 85652; 86140; G0103

== ENCOUNTER → 2023-06-25 | Outpatient (CLI) | payer BC, SELFPAY ==
[2019-08-31 11:18] VITALS: BMI 28.1
== END | disposition home or self-care (01) ==
LOC: LAB 07:54
PROVIDERS: PCP Internal Medicine; Referring Provider Urology; Visit Provider Urology
DX: R30.0 Dysuria (principal)
CPT/HCPCS: 87086; 87088

== ENCOUNTER 2023-07-09 11:50 | Day surgery (SDC) | payer BC, SELFPAY ==
[2019-08-31 11:18] VITALS: BMI 28.1
[2023-07-01 09:24] LABS: Thyroid Stim Hormone (TSH) 1.46 uIU/mL (0.358-3.74)
[2023-07-09] VITALS (12 sets, daily range): BP systolic 107–129; BP diastolic 60–76; PULSE 58–86; RESP 15–16; TEMP 36.1–36.6; O2SAT 92–97; BMI 25.5; BMI 25.6
--- NOTE | 2023-07-09 | PROS_PTH ---
PATIENT: ERMA PÉREZ [place] [facility] [id number] AGE/SX: 67/M ROOM: RE07/09/[address]: Dr. Radames Armenta MD : 1955 BED: DIS: 07/11/2023 SPEC #: [id number] RECD: 07/09/23 14:44 STATUS: ROQUE RE #: [id number] NIKKO: 07/09/23 00:[address]: Radames Armenta DEPT: SURGICAL PATHOLOGY RECD BY: Milton Clarke ENTERED: 07/12/23 10:08 SP TYPE: TURP OTHR DR: MD Dr. Rena Coronado DO Tissues: Prostate, NOS Procedures: Surgery Specimen Level IV HEADER OPERATION: Transurethral resection of prostate with Olympus PRE-OP DIAGNOSIS: Prostate cancer with BPH TISSUE SUBMITTED: Prostate tissue MICROSCOPIC DIAGNOSIS Prostate tissue, transurethral resection: Benign prostatic hyperplasia, predominantly stromal type. Chronic inflammation. JENNIE/ 07/13/23 MICROSCOPIC DESCRIPTION Slides are reviewed. GROSS DESCRIPTION Received is one container labeled with the patient's name and designated prostate tissue. The specimen consists of multiple irregular fragments of pink-littlejohn, rubbery, soft tissue that in aggregate weigh 4.1 gm and measure in aggregate 3.0 x 2.5 x 1.0 cm. The entire specimen is submitted in five cassettes. JENNIE/ 07/12/23 TC:5 CPT: 13182
--- NOTE | 2023-07-09 12:23 | DCINST_ITS ---
Discharge Instructions Diet Discharge Diet: No restrictions Activity Discharge Activity: Return to Normal Activity and May Not Drive (while taking narcotic pain medications.) Dressing / Incision Call your doctor if you observe: Fever of 101 or Higher Follow Up Care Please Follow Up With: Radames Armenta MD When: Call [phone] for an appointment Test Results: Test results from this visit will be discussed in further detail at your follow- up appointment, if applicable. Discharge Plan Admission Primary Reason for Your Visit: Transurethral section of prostate Attending Provider: Radames Armenta Primary Care Provider: Rena Moore Consulting Providers: Jose Navarro Discharge Orders/Prescriptions Prescriptions: New ciprofloxacin HCl [Cipro] 500 mg tablet 500 mg PO BID Qty: 10 0RF Continued losartan 50 mg tablet 50 mg PO BID rosuvastatin 20 mg tablet 20 mg PO QDAY metformin 500 mg tablet 500 mg PO TID levothyroxine 100 mcg tablet 100 mcg PO DAILY 90 Days carvedilol 6.25 mg tablet 6.25 mg PO BID Patient Comments: TAKE 1 TABLET BY MOUTH TWICE A DAY cyanocobalamin (vitamin B-12) 1,000 mcg capsule 1,000 mcg PO DAILY [place] 3-6-9 1,200 mg capsule 1 cap PO DAILY ascorbic acid (vitamin C) 1,000 MG tablet 2,000 mg PO QHS zinc 50 MG tablet 100 mg PO DAILY cholecalciferol (vitamin D3) [Vitamin D3] 125 mcg (5,000 unit) Tablet 125 mcg PO DAILY tamsulosin [Flomax] 0.4 mg Capsule 0.4 mg PO QHS amlodipine 10 mg tablet 10 mg PO DAILY vitamin E 268 mg (400 unit) capsule 268 mg PO DAILY Referrals / Follow Up: Rena Moore DO [Primary Care Provider] - Radames Armenta MD [Med Staff - Active Staff] - Disposition Disposition (needs filled in before D/C Order can be placed): Home, Self Care
--- NOTE | 2023-07-09 12:23 | PCM.HP.STD ---
HPI - General General Date of Service: 07/09/23 Chief Complaint: BPH with obstruction HPI Narrative ERMA PÉREZ, is a 67 M who presents for transurethral section of prostate for history of obstruction he does have a history of prostate cancer had radiation therapy in the past [facility] Medical History (Updated 06/28/23 @ 10:33 by Gayla Elizabeth) Arthritis Cardiology follow-up encounter COVID-19 (04/17/20) Diabetes mellitus Dietary restriction DJD (degenerative joint disease) of cervical spine Emphysema, unspecified Essential (primary) hypertension Fatty liver Former smoker History of blood clotting disorder History of diverticulitis History of echocardiogram History of edema History of GI bleed History of ischemic colitis History of stress test Hoarseness Hyperlipidemia Hypothyroidism Leg cramps Loss of hearing Nonischemic cardiomyopathy Nonobstructive atherosclerosis of coronary artery Prostate cancer Home Medications losartan 50 mg tablet 50 mg PO BID 05/26/17 [History Last Taken 01/03/21] rosuvastatin 20 mg tablet 20 mg PO QDAY 05/26/17 [History Last Taken Unknown] ascorbic acid (vitamin C) 1,000 mg tablet 2,000 mg PO QHS 04/18/20 [History Last Taken Unknown] zinc 50 mg tablet 100 mg PO DAILY 04/18/20 [History Last Taken Unknown] carvedilol 6.25 mg tablet 6.25 mg PO BID 06/07/20 [History Last Taken 01/03/21] cyanocobalamin (vitamin B-12) 1,000 mcg capsule 1,000 mcg PO DAILY 06/07/20 [History Last Taken Unknown] fish, borage, flaxseed oils-omega 3,6,9 comb no.1 1,200 mg capsule ([place] 3-6-9) 1 cap PO DAILY 06/07/20 [History Last Taken Unknown] levothyroxine 100 mcg tablet 100 mcg PO DAILY 90 days 06/07/20 [History Last Taken 01/03/21] metformin 500 mg tablet 500 mg PO TID 06/07/20 [History Last Taken Unknown] cholecalciferol (vitamin D3) 125 mcg (5,000 unit) tablet (Vitamin D3) 125 mcg PO DAILY 12/27/20 [History Last Taken Unknown] tamsulosin 0.4 mg capsule (Flomax) 0.4 mg PO QHS 12/30/20 [History Last Taken Unknown] amlodipine 10 mg tablet 10 mg PO DAILY 06/28/23 [History Last Taken Unknown] vitamin E 268 mg (400 unit) capsule 268 mg PO DAILY 06/28/23 [History Last Taken Unknown] ciprofloxacin HCl 500 mg tablet (Cipro) 500 mg PO BID #10 tabs 07/09/23 [Rx Last Taken Unknown] Allergy/AdvReac Type Severity Reaction Status Date / Time No Known Allergies Allergy Verified 06/28/23 09:15 Family History (Reviewed 05/05/22 @ 15:41 by Katelyn Flannery GENERAL EDUCATION INSTRUCTOR, GENERAL EDUCATION INSTRUCTOR-C) Mother Diabetes Father CHF (congestive heart failure) Brother Myocardial infarction CHF (congestive heart failure) Surgical History (Updated 06/28/23 @ 10:33 by Gayla Elizabeth) History of appendectomy History of colonoscopy History of intestinal surgery History of left heart catheterization (12/2004) Hx of cystoscopy Social History Smoking Status: Former smoker how long ago did patient quit smokin alcohol intake: never substance use type: does not use caffeine: Yes Type: coffee Number of servings: 2 what type of physical activity do you participate in: none seatbelt use: always do you feel safe at home: Yes Vital Signs Vital Signs Vital Signs: Weight Weight: 80.739 kg
[2023-07-09] MEDS: Lactated Ringers 1,000 ML 15 ML IV ×2 (12:34→14:41)
[2023-07-09 13:14] LABS: Bedside Glucose 98 mg/dL (74-106)
[2023-07-09] MEDS: Cefazolin 2 GM in 0.9% Normal Saline (100mL Bag) 100 ML IV (13:24)
--- NOTE | 2023-07-09 14:01 | OP.PCM_ITS ---
Report of Operation Date of Procedure: 07/09/23 Pre-Operative Diagnosis: BPH with obstruction Post-Operative Diagnosis: The same Surgery/Procedure Performed:: Transurethral section of prostate Description of Surgical Findings:: In the preoperative setting I discussed with the patient how the surgery would be done with expect afterwards. We discussed how a prostate resection is done and we discussed the risk of the surgery including, bleeding, infection, retrograde ejaculation, changes with ejaculation or intercourse,. We discussed the possibility that the resection of the prostate may not alleviate his urinary symptoms. We discussed the small risk of developing scar tissue along the urethral channel and strictures. We also discussed the chance of the prostate could grow back and he may need further surgery or treatment in the future for prostate problems. Patient was taken back to the operating room, timeout procedure was performed, he was identified and marked and placed on the operating room table. He underwent general anesthesia. He was placed in dorsolithotomy position. Penis and testicles were prepped and draped in usual sterile fashion. Went into the bladder using the visual obturator with a resectoscope. Once inside the bladder identified the right and left ureteral orifice. I then identified the prostate and the anatomy of the prostate. I marked out the area of the sphincter and the verumontanum was identified. I then proceeded with the prostate resection first resected the median lobe. And then resected the right lobe of the prostate. Then to resect the left lobe of the prostate. I then resected the apical tissue of the prostate. This was a complete resection of all obstructive tissue to improve voiding and relieve obstruction. I then made sure that there was no injury to the sphincter or the verumontanum was still intact. At the end of the resection all the chips were Ellik out of the bladder. I then identified the left and right ureteral orifice and these were confirmed to be in good position and effluxing and not injured. The resectoscope was removed, a 22 [place] catheter was placed into the bladder on continuous irrigation. And the urine was fairly light pink color and draining normally. He was taken back to the PACU in good condition. Surgeon: Radames Armenta Type of Anesthesia: General Drains: 22fr [address] way Admit VTE Documentation VTE Present on Admission: No VTE Mechan Device Prophylaxis: SCD's VTE Pharm Prophylaxis ordered?: No
[2023-07-09 15:06] LABS: Bedside Glucose 86 mg/dL (74-106)
[2023-07-09] MEDS: Ketorolac 15 MG/ML Vial IV (19:50)
[2023-07-09] MEDS: Ciprofloxacin 400 MG/200 ML BAG 200 MG IV (21:28)
[2023-07-09] MEDS: Losartan Potassium 50 MG Tablet PO (21:33)
[2023-07-09] MEDS: Tamsulosin HCl 0.4 MG Capsule PO (21:33)
[2023-07-09] MEDS: Carvedilol 6.25 MG Tablet PO (21:34)
[2023-07-09] MEDS: Docusate Sodium 100 MG Capsule 200 MG PO (21:34)
[2023-07-09] MEDS: Atorvastatin Calcium 40 MG Tablet PO (21:34)
[2023-07-10 00:59] VITALS: RESP 15
[2023-07-10 02:59] VITALS: BMI 25.6
[2023-07-10 03:00] VITALS: BP 115/69; PULSE 67; RESP 15; TEMP 36.4; O2SAT 92
[2023-07-10] MEDS: Ketorolac 15 MG/ML Vial IV ×3 (05:37→22:55)
[2023-07-10] MEDS: Levothyroxine 100 MCG Tablet PO (05:38)
--- NOTE | 2023-07-10 08:51 | CASEMGMT ---
RN CM Assessment: Face to Face with pt for initial transition planning/care coordination assessment. RN CM introduced self and role at [facility], pt voices understanding and consents to assessment with spouse present. Pt is A&O x4, resting in bed, and answers all questions appropriately at this time. Care providers, pharmacy, and demographics verified/updated. Admitting Dx: Transurethral resection of prostate with Olympus PCP: Rena Moore Specialists:Urology Preferred Pharmacy: [facility] Insurance: [employer] Prescription Benefit: yes LNOK: Spouse Lori [phone] Living Arrangements: Pt lives at home with spouse. Home is multi level with 2 sets of stairs, no railing on either. Pt with no trouble managing stairs at baseline. Pt is independent with ADLs and IADLs. Transportation: Pt drives self and denies concerns with transportation. DME: None HHC/SNF: No history Pt states no concerns with going home at time of dc. Pt states no further concerns/needs. CM to follow. Advised pt to ask CM if any further question/concerns/needs arise, voices understanding. Pt Goal: Home Plan: Home with no needs Meka Spencer MSN, RN, CCM
[2023-07-10] MEDS: Ciprofloxacin 400 MG/200 ML BAG 200 MG IV (09:00)
[2023-07-10] MEDS: 0.9% Saline Lock 10 ML Syringe IV ×4 (09:02→22:56)
[2023-07-10] MEDS: Docusate Sodium 100 MG Capsule 200 MG PO ×2 (09:03→21:28)
[2023-07-10] MEDS: metFORMIN HCl 500 MG Tablet PO ×3 (09:03→18:13)
[2023-07-10] MEDS: amLODIPine 10 MG Tablet PO (09:05)
[2023-07-10] MEDS: Finasteride 5 MG Tablet PO (09:05)
[2023-07-10] MEDS: Zinc Sulfate 50 mg zinc (220 mg) ORAL capsule PO (09:06)
[2023-07-10] MEDS: Losartan Potassium 50 MG Tablet PO ×2 (09:06→21:28)
[2023-07-10] MEDS: Carvedilol 6.25 MG Tablet PO ×2 (09:06→21:29)
[2023-07-10 09:08] VITALS: BP 124/61; PULSE 78; RESP 18; TEMP 37.2; O2SAT 98
--- NOTE | 2023-07-10 09:10 | NURSING ---
CBI clamped at around 0730 per director physical JANICE Gambino
[2023-07-10] MEDS: Acetaminophen 325 MG Tablet PO (09:15)
[2023-07-10 10:35] VITALS: BMI 25.6
[2023-07-10 15:00] VITALS: BP 125/72; PULSE 87; RESP 18; TEMP 36.8; O2SAT 92; BMI 25.6
[2023-07-10 18:45] VITALS: BMI 25.6
[2023-07-10 21:23] VITALS: BP 147/70; PULSE 79; RESP 16; TEMP 36.6; O2SAT 95
[2023-07-10 21:25] VITALS: BMI 25.6
[2023-07-10] MEDS: Tamsulosin HCl 0.4 MG Capsule PO (21:28)
[2023-07-10] MEDS: Atorvastatin Calcium 40 MG Tablet PO (21:28)
[2023-07-10] MEDS: Ciprofloxacin 500 MG Tablet PO (21:32)
[2023-07-11 02:30] VITALS: BMI 25.6
[2023-07-11 02:34] VITALS: BP 130/71; PULSE 83; RESP 17; TEMP 36.7; O2SAT 95
[2023-07-11] MEDS: Acetaminophen 325 MG Tablet PO (02:45)
[2023-07-11] MEDS: Levothyroxine 100 MCG Tablet PO (04:59)
--- NOTE | 2023-07-11 08:28 | PCM.PN.GU ---
Subjective Subjective s/p turp ferrera out, voiding okay home today without ferrera Objective Data Objective Data Vital Signs: Vital Signs Temp Pulse Resp BP Pulse Ox O2 Del Method 98.1 F 83 17 130/71 H 95 Room Air 07/11/23 02:34 07/11/23 02:34 07/11/23 02:34 07/11/23 02:34 07/11/23 02:34 07/11/23 02:34 Oxygen Delivery Method Room Air Weight: 74.1 kg Body Mass Index (BMI) 25.5 Intake & Output: Intake and Output for Last 24 Hours 07/09/23 07/10/23 07/11/23 23:59 23:59 23:59 Intake Total 2310 / 2310 875.25 / 875.25 Output Total 1500 / 1500 3300 / 3300 1100 / 1100 Balance 810 / 810 -2424.75 / -2424.75 -1100 / -1100
[2023-07-11 08:30] VITALS: BP 148/82; PULSE 73; RESP 16; TEMP 37.1; O2SAT 98
== END 2023-07-11 08:47 | disposition home or self-care (01) ==
LOC: SDC 11:51 → AC 11:54 → MS3 07-10 11:13
PROVIDERS: Anesthesiology; PCP Internal Medicine; Referring Provider Urology; Visit Provider Urology
PROC: (CPT 52630; principal; 2023-07-09 13:50)
DX: N40.1 Benign prostatic hyperplasia with lower urinary tract symptoms (principal); E11.9 Type 2 diabetes mellitus without complications; Z86.16 Personal history of COVID-19; I25.10 Atherosclerotic heart disease of native coronary artery without angina pectoris; Z79.84 Long term (current) use of oral hypoglycemic drugs; E78.5 Hyperlipidemia, unspecified; Z87.891 Personal history of nicotine dependence; I10 Essential (primary) hypertension; N13.8 Other obstructive and reflux uropathy; Z85.46 Personal history of malignant neoplasm of prostate; Z87.19 Personal history of other diseases of the digestive system; Z86.2 Personal history of diseases of the blood and blood-forming organs and certain disorders involving the immune mechanism; E03.9 Hypothyroidism, unspecified; Z90.49 Acquired absence of other specified parts of digestive tract; N41.9 Inflammatory disease of prostate, unspecified
CPT/HCPCS: 52630; 00914; 36415; 82962; 84443; 88305; 94668; 97802; J7120; A4216; J0744; J2405

== ENCOUNTER 2023-12-10 12:47 | Day surgery (SDC) | payer BC, SELFPAY ==
[2019-08-31 11:18] VITALS: BMI 28.1
[2023-12-10] VITALS (11 sets, daily range): BP systolic 93–127; BP diastolic 56–78; PULSE 63–84; RESP 16; TEMP 36.3–36.7; O2SAT 93–100; BMI 25.7
--- NOTE | 2023-12-10 13:06 | PCM.PRE.AN2 ---
ASA Classification* ASA Classification ASA Classification: 3 Assessment & Plan Anesthesia* Anesthesia Assessment Anesthesia Assessment: Discussed sedation and/or anesthesia options, risks, benefits, and alternatives with patient/parents/legal guardian/POA. Questions invited. The patient/parents/legal guardian/POA seems to understand and agrees to proceed with anesthesia plan. Reviewed the physical assessment, medical history, allergy history and patient home medications list prior to surgery/procedure/anesthetic and documented any changes. Performed airway and anesthesia risk assessments. Anesthesia Type Anesthesia Type: General Anesthesia Focused Assessment* Airway Assessment Mouth opens: >3 cm Mallampati Score: II Focused Labs Anesthesia Preop lab: CBC WBC 8.8 K/mm3 (4.4-11.0) 06/08/23 08:16 RBC 4.31 M/mm3 (4.6-6.2) L 06/08/23 08:16 Hgb 13.0 g/dL (13.0-16.5) 06/08/23 08:16 Hct 39.8 % (40-54) L 06/08/23 08:16 Plt Count 245 K/mm3 (150-450) 06/08/23 08:16 CHEMISTRY Potassium 3.8 mmol/L (3.5-5.1) 06/08/23 08:16 Sodium 141 mmol/L (136-145) 06/08/23 08:16 BUN 16 mg/dL (7-18) 06/08/23 08:16 Creatinine 0.75 mg/dL (0.70-1.30) 06/08/23 08:16 Glucose 99 mg/dL (74-106) 06/08/23 08:16 POC Glucose 86 mg/dL (74-106) 07/09/23 14:49 TSH 1.46 uIU/mL (0.358-3.74) 07/01/23 08:18 COAG Pre-Assessment Diagnosis/Proposed Procedure Planned Operative Procedure(s): CYSTO, TURP Anesthesia History Anesthesia History - prestidigitator: Anesthesia History - prestidigitator Hx Hospitalization No 12/09/23 10:46 Any Problems With Anesthesia No 12/09/23 10:46 Cholinesterase deficiency No 12/09/23 10:46 You/Your Family Experience No 12/09/23 10:46 fever (hyperthermia) with Relationship Recent Exposure to Contagious No 07/09/23 12:29 Disease Does patient have nerve No 12/09/23 10:46 stimulator Patient instructed to have device shut off --Does patient have Pacemaker or ICD? When Was Last Pacemaker Check QUESTION #4 FULL TEXT: You/Your Family Experience fever (hyperthermia) with Anesthesia Last Oral Intake Last Oral intake: Last Oral Intake NPO since Meds taken in AM with sips of water? Meds patient instructed to take am of surgery PONV PONV - prestidigitator: PONV - prestidigitator Female No 12/09/23 10:46 HX of Motion Sickness No 12/09/23 10:46 HX of N/V After Surgery No 12/09/23 10:46 Non-Smoker Yes 12/09/23 10:46 Duration of Surgery greater Yes 12/09/23 10:46 than 60 minutes Number of Risk Factors 2 12/09/23 10:46 PONV Score Moderate Risk 12/09/23 10:46 Height & Weight Height & Weight: Anesthesia: Height & Weight Height 5 ft 7 in 07/10/23 14:44 Respiratory Assessment Respiratory Assessment - prestidigitator: Respiratory Tract Infection Hx - prestidigitator Hx Respiratory Tract Infection No 12/09/23 10:46 STOP Sleep Apnea STOP Sleep Apnea - prestidigitator: STOP Sleep Apnea - prestidigitator Hx Hypertension Yes: CONTROLLED WITH MEDS 12/09/23 10:46 Hx Sleep Apnea No 12/09/23 10:46 CPAP BIPAP Do you snore loudly (louder No 12/09/23 10:46 than talking or can be heard Do you often feel tired/ No 12/09/23 10:46 fatigued/ sleepy during daytime? Has anyone observed you stop No 12/09/23 10:46 breathing during sleep? STOP Results Negative 12/09/23 10:46 QUESTION #5 FULL TEXT : Do you snore loudly (louder than talking or can be heard through closed doors)? Tobacco Use History Tobacco Use History - prestidigitator: Tobacco Use History - prestidigitator Tobacco Use Smoking Status Former smoker 12/09/23 10:46 Hx Tobacco Use No 12/09/23 10:46 Years Smoking Packs Smoked per Day Smoking Cessation Date was Yes - quit smoking within 15 12/09/23 10:46 within the last 15 years years Hx Smoking Cessation Date 12/28/15 12/09/23 10:46 Hx Smoking Cessation No 12/09/23 10:46 Counseling Hematologic Medial History Hematologic Hx - prestidigitator: Hematologic Medical Hx - magistrate Hx of Blood Transfusion No 12/09/23 10:46 Hx of Transfusion in last 3 No 12/09/23 10:46 Months Date of Last Transfusion (if within last 3 months) Ever experience any problems No 12/09/23 10:46 with transfusion(s)? Specify any problems Hx of Preganancy in last 3 N/A 12/09/23 10:46 Months Nurse Filling Out Transfusion NBUCHER 12/09/23 10:46 & Questions: Date: 12/09/23 12/09/23 10:46 Time: 10:48 12/09/23 10:46 Patient unable to answer at this time (ie. confused, unrespo /Reproduction History /Reproductive History - prestidigitator: /Reproductive Hx- prestidigitator Hx Now Gestational Age (in weeks): EDC: Hx Hx Para Hx Section SAB No 12/09/23 10:46 Active Medications Active Medications: Current Medications Generic Name Dose Route Start Last Admin Trade Name Freq PRN Reason Stop Dose Admin Lactated Ringer's 1,000 mls @ 15 mls/hr 12/10/23 13:15 IV .Q48H CHRISTOPH PFSH Medical History History of stress test Loss of hearing Arthritis Fatty liver Cardiology follow-up encounter History of echocardiogram Dietary restriction Hoarseness Emphysema, unspecified Leg cramps History of edema Nonobstructive atherosclerosis of coronary artery History of blood clotting disorder History of diverticulitis History of GI bleed Former smoker History of ischemic colitis Prostate cancer COVID-19 (04/17/20) Hypothyroidism DJD (degenerative joint disease) of cervical spine Essential (primary) hypertension Nonischemic cardiomyopathy Hyperlipidemia Diabetes mellitus Home Medications ?Medication ?Instructions ?Recorded ?Last Taken ?Type losartan 50 mg tablet 50 mg PO BID 05/26/17 07/09/23 History rosuvastatin 20 mg tablet 20 mg PO QDAY 05/26/17 07/08/23 History ascorbic acid (vitamin C) 1,000 mg 2,000 mg PO QHS 04/18/20 07/08/23 History tablet zinc 50 mg tablet 100 mg PO DAILY 04/18/20 07/08/23 History carvedilol 6.25 mg tablet 6.25 mg PO BID 06/07/20 07/09/23 History cyanocobalamin (vitamin B-12) 1,000 mcg PO DAILY 06/07/20 07/08/23 History 1,000 mcg capsule fish, borage, flaxseed oils-omega 1 cap PO DAILY 06/07/20 07/01/23 History 3,6,9 comb no.1 1,200 mg capsule ([place] 3-6-9) levothyroxine 100 mcg tablet 100 mcg PO DAILY 90 days 06/07/20 07/09/23 History metformin 500 mg tablet 500 mg PO 4X/DAY 06/07/20 07/08/23 History cholecalciferol (vitamin D3) 125 125 mcg PO DAILY 12/27/20 07/08/23 History mcg (5,000 unit) tablet (Vitamin D3) tamsulosin 0.4 mg capsule (Flomax) 0.4 mg PO QHS 12/30/20 07/08/23 History amlodipine 10 mg tablet 10 mg PO DAILY 06/28/23 07/09/23 History vitamin E 268 mg (400 unit) capsule 268 mg PO DAILY 06/28/23 07/01/23 History ciprofloxacin HCl 500 mg tablet 500 mg PO BID #10 tabs 07/09/23 Unknown Rx (Cipro) aspirin 81 mg capsule 81 mg PO DAILY 12/09/23 Unknown History Allergy/AdvReac Type Severity Reaction Status Date / Time No Known Allergies Allergy Verified 07/09/23 12:26 Family History Mother Diabetes Father CHF (congestive heart failure) Brother Myocardial infarction CHF (congestive heart failure) Surgical History Hx of cystoscopy History of colonoscopy History of intestinal surgery History of appendectomy History of left heart catheterization (12/2004) Social History Smoking Status: Former smoker how long ago did patient quit smokin alcohol intake: never substance use type: does not use caffeine: Yes Type: coffee Number of servings: 2 what type of physical activity do you participate in: none seatbelt use: always do you feel safe at home: Yes Review of Systems (Anesthesia) ROS Narrative System reviewed and no additional complaints, except as documented.
[2023-12-10 13:32] LABS: Hematocrit 38.6 % (40-54); Hemoglobin 12.2 g/dL (13.0-16.5); Mean Corp Hgb Conc 31.6 g/dL (32-36); Mean Corpuscular Hgb 28.8 pg (27.0-32.0); Mean Corpuscular Volume 91.3 fL (80-94); Mean Platelet Vol. 9.5 fl (6.2-12.0); Platelet Count 254 K/mm3 (150-450); RBC Distribution Width CV 14.5 % (11.6-14.6); RBC Distribution Width SD 48.6 fl (35.1-43.9); Red Blood Count 4.23 M/mm3 (4.6-6.2); White Blood Count 13.2 K/mm3 (4.4-11.0)
[2023-12-10] MEDS: Lactated Ringers 1,000 ML 15 ML IV (13:32)
[2023-12-10 13:46] LABS: Bedside Glucose 106 mg/dL (74-106)
[2023-12-10 13:56] LABS: Anion Gap 5 (5-15); BUN 26 mg/dL (7-18); BUN/Creat Ratio 38.7 RATIO (10-20); Calcium,Total 9.5 mg/dL (8.5-10.1); Chloride 104 mmol/L (98-107); Creatinine, Serum 0.67 mg/dL (0.70-1.30); EST Glomerular Filtration Rate 125 mL/min (>60); Est Glom Filt Rate - Afr Amer 151 mL/min (>60); Estimated Creatinine Clearance 82.63 ml/min; Glucose 105 mg/dL (74-106); Potassium 3.9 mmol/L (3.5-5.1); Sodium Level 138 mmol/L (136-145); Thyroid Stim Hormone (TSH) 0.482 uIU/mL (0.358-3.740)
--- NOTE | 2023-12-10 14:17 | HP.PCM_ITS ---
HPI - General General Date of Service: 12/10/23 Chief Complaint: Transurethral section of prostate HPI Narrative ERMA PÉREZ, is a 68 M who presents for a redo transurethral section of prostate had a TURP earlier this year had been doing well but then developed tension urine was found to have significant scar tissue adhesions of the bilateral tissue and some scarring in the prostatic channel Sorg and the reresect the channel explained to the patient that he is a higher risk of having bladder control and incontinence after the surgery. [facility] Medical History History of stress test Loss of hearing Arthritis Fatty liver Cardiology follow-up encounter History of echocardiogram Dietary restriction Hoarseness Emphysema, unspecified Leg cramps History of edema Nonobstructive atherosclerosis of coronary artery History of blood clotting disorder History of diverticulitis History of GI bleed Former smoker History of ischemic colitis Prostate cancer COVID-19 (04/17/20) Hypothyroidism DJD (degenerative joint disease) of cervical spine Essential (primary) hypertension Nonischemic cardiomyopathy Hyperlipidemia Diabetes mellitus Home Medications ?Medication ?Instructions ?Recorded ?Last Taken ?Type losartan 50 mg tablet 50 mg PO BID 05/26/17 12/10/23 History rosuvastatin 20 mg tablet 20 mg PO QDAY 05/26/17 12/09/23 History ascorbic acid (vitamin C) 1,000 mg 2,000 mg PO QHS 04/18/20 12/08/23 History tablet zinc 50 mg tablet 100 mg PO DAILY 04/18/20 12/08/23 History carvedilol 6.25 mg tablet 6.25 mg PO BID 06/07/20 12/10/23 History cyanocobalamin (vitamin B-12) 1,000 mcg PO DAILY 06/07/20 12/08/23 History 1,000 mcg capsule fish, borage, flaxseed oils-omega 1 cap PO DAILY 06/07/20 12/08/23 History 3,6,9 comb no.1 1,200 mg capsule ([place] 3-6-9) levothyroxine 100 mcg tablet 100 mcg PO DAILY 90 days 06/07/20 12/10/23 History metformin 500 mg tablet 500 mg PO 4X/DAY 06/07/20 12/09/23 History cholecalciferol (vitamin D3) 125 125 mcg PO DAILY 12/27/20 12/08/23 History mcg (5,000 unit) tablet (Vitamin D3) tamsulosin 0.4 mg capsule (Flomax) 0.4 mg PO QHS 12/30/20 12/09/23 History amlodipine 10 mg tablet 10 mg PO DAILY 06/28/23 12/10/23 History vitamin E 268 mg (400 unit) capsule 268 mg PO DAILY 06/28/23 12/08/23 History aspirin 81 mg capsule 81 mg PO DAILY 12/09/23 12/09/23 History phenazopyridine 100 mg tablet 100 mg PO TID 12/10/23 12/09/23 History Allergy/AdvReac Type Severity Reaction Status Date / Time No Known Allergies Allergy Verified 12/10/23 13:20 Family History (Reviewed 05/05/22 @ 15:41 by Katelyn Flannery ACQUISITIONS LOGISTICS ANALYST, ACQUISITIONS LOGISTICS ANALYST-C) Mother Diabetes Father CHF (congestive heart failure) Brother Myocardial infarction CHF (congestive heart failure) Surgical History Hx of cystoscopy History of colonoscopy History of intestinal surgery History of appendectomy History of left heart catheterization (12/2004) Social History (Reviewed 05/05/22 @ 15:41 by Katelyn Flannrey ACQUISITIONS LOGISTICS ANALYST, ACQUISITIONS LOGISTICS ANALYST-C) Smoking Status: Former smoker how long ago did patient quit smokin alcohol intake: never substance use type: does not use caffeine: Yes Type: coffee Number of servings: 2 what type of physical activity do you participate in: none seatbelt use: always do you feel safe at home: Yes Vital Signs Vital Signs Vital Signs: 12/10/23 13:25 12/10/23 13:25 Temperature 97.8 F Temperature Source Temporal Pulse Rate 70 Respiratory Rate 16 Respiratory Pattern Normal Blood Pressure 117/69 Blood Pressure Mean 85 Blood Pressure Source Monitor Blood Pressure Position Semi-Fowlers Blood Pressure Location Left Arm Pulse Ox 96 Oxygen Delivery Method Room Air Weight Weight: 74.7 kg Body Mass Index (BMI) 25.7 Results Lab / Micro Data 12/10/23 13:20 12/10/23 13:20 Labs: Laboratory Results - last 24 hr 12/10/23 13:20: WBC 13.2 H, RBC 4.23 L, Hgb 12.2 L, Hct 38.6 L, MCV 91.3, MCH 28.8, MCHC 31.6 L, RDW Std Deviation 48.6 H, RDW Coeff of Silvia 14.5, Plt Count 254, MPV 9.5, Sodium 138, Potassium 3.9, Chloride 104, Carbon Dioxide 29.0, Anion Gap 5, BUN 26 H, Creatinine 0.67 L, Estim Creat Clear Calc 82.63, Est GFR (MDRD) Af Amer 151, Est GFR (MDRD) Non-Af 125, BUN/Creatinine Ratio 38.7 H, Glucose 105, Calcium 9.5, TSH 0.482 12/10/23 13:28: POC Glucose 106
--- NOTE | 2023-12-10 14:18 | PCM.DC ---
Discharge Instructions Diet Discharge Diet: No restrictions Activity Discharge Activity: Return to Normal Activity and May Not Drive (while taking narcotic pain medications.) Dressing / Incision Call your doctor if you observe: Fever of 101 or Higher Follow Up Care Please Follow Up With: Radames Armenta MD When: Call [phone] for an appointment Test Results: Test results from this visit will be discussed in further detail at your follow-up appointment, if applicable. Discharge Plan Admission Primary Reason for Your Visit: pj reza Attending Provider: Radames Armenta Primary Care Provider: Rena Moore Instructions Patient Instructions: [facility] Home Recovery, [facility] Hospital Recovery Print Language: Malawian Discharge Orders/Prescriptions Prescriptions: Continued losartan 50 mg tablet 50 mg PO BID rosuvastatin 20 mg tablet 20 mg PO QDAY metformin 500 mg tablet 500 mg PO 4X/DAY levothyroxine 100 mcg tablet 100 mcg PO DAILY 90 Days carvedilol 6.25 mg tablet 6.25 mg PO BID Patient Comments: TAKE 1 TABLET BY MOUTH TWICE A DAY cyanocobalamin (vitamin B-12) 1,000 mcg capsule 1,000 mcg PO DAILY [place] 3-6-9 1,200 mg capsule 1 cap PO DAILY ascorbic acid (vitamin C) 1,000 MG tablet 2,000 mg PO QHS zinc 50 MG tablet 100 mg PO DAILY cholecalciferol (vitamin D3) [Vitamin D3] 125 mcg (5,000 unit) Tablet 125 mcg PO DAILY tamsulosin [Flomax] 0.4 mg Capsule 0.4 mg PO QHS amlodipine 10 mg tablet 10 mg PO DAILY vitamin E 268 mg (400 unit) capsule 268 mg PO DAILY phenazopyridine 100 mg tablet 100 mg PO TID Held aspirin 81 mg capsule 81 mg PO DAILY Hold Instructions: Resume on 12/24/23. Referrals / Follow Up: Rena Moore DO [Primary Care Provider] - Radames Armenta MD [Med Staff - Active Staff] - Disposition Disposition (needs filled in before D/C Order can be placed): Home, Self Care
[2023-12-10 14:27] LABS: Hemoglobin A1c 6.1 % (3.8-5.6)
[2023-12-10] MEDS: Cefazolin 2 GM in 0.9% Normal Saline (100mL Bag) 100 ML IV (14:54)
--- NOTE | 2023-12-10 14:55 | PROS_PTH ---
PATIENT: ERMA PÉREZ LOC: [facility] U#:[id number] AGE/SX: 68/M ROOM: RE12/10/[address]: Dr. Radames Armenta MD : [id number] BED: DIS: 12/11/2023 SPEC #: [id number] RECD: 12/13/23 07:13 STATUS: ROQUE RE #: [id number] NIKKO: 12/10/23 14:[address]: Radames Armenta DEPT: SURGICAL PATHOLOGY RECD BY: Manav Montes ENTERED: 12/13/23 09:49 SP TYPE: TURP OTHR DR: Dr. Rena Moore DO Tissues: Prostate, NOS Procedures: Surgery Specimen Level IV HEADER OPERATION: Transurethral resection prostate PRE-OP DIAGNOSIS: Benign prostatic hyperplasia with obstruction TISSUE SUBMITTED: Prostate tissue MICROSCOPIC DIAGNOSIS Prostate tissue, transurethral resection: Benign prostatic tissue with chronic inflammation. Extensive necrosis and acute inflammation. See comment. Focal stromal hyperplasia. JENNIE/ 12/14/2023 COMMENT Findings may represent therapy related changes. Please make reference to previous specimen [id number] prostate tissue, transurethral resection with diagnosis of benign prostatic hyperplasia, predominantly stromal type and [id number] right prostate mid, core biopsy with diagnosis of adenocarcinoma and [id number] right prostate mid, core biopsy with diagnosis of prostatic adenocarcinoma. Clinical correlation and appropriate follow up are necessary. This case has been reviewed in c consultation with Dr. Vo who concurs with the above diagnosis. MICROSCOPIC DESCRIPTION Slides are reviewed. GROSS DESCRIPTION Received is one container labeled with the patient's name and designated prostate tissue. The specimen consists of multiple irregular fragments of pink-littlejohn, rubbery, soft tissue that in aggregate weigh 5.4 gm and measure in aggregate 2.5 x 3.0 x 1.5 cm. The entire specimen is submitted in six cassettes. 12/13/2023 TC:5 CPT: 69198
--- NOTE | 2023-12-10 15:57 | PCM.POST.ANE ---
Anesthesia: Postop Eval I Current Vital Signs Temperature: 98.0 F Pulse Rate: 82 Blood Pressure: 117/69 Respiratory Rate: 16 Pulse Ox: 96 Oxygen Delivery Method: Room Air Assessment Airway patent: Yes Spontaneous unlabored respirations: Yes Mental status: Awake and Calm nausea: No Vomiting: No Anesthesia Complication: No Fluid Hydration Crystalloid volume administer (ml): 800 Total IV fluid infused: 800 Progress Note Anesthesia document: Postop Eval 1 completed: Yes
--- NOTE | 2023-12-10 15:59 | PCM.OPRPT ---
Report of Operation Date of Procedure: 12/10/23 Pre-Operative Diagnosis: Recurrent obstruction of the prostate Post-Operative Diagnosis: The same Surgery/Procedure Performed:: Transurethral section of prostate, redo Description of Surgical Findings:: In the preoperative setting I discussed with the patient how the surgery would be done with expect afterwards. He has had a prior transurethral section of prostate has developed obstruction from necrotic tissue and regrowth. We discussed how a prostate resection is done and we discussed the risk of the surgery including, bleeding, infection, retrograde ejaculation, changes with ejaculation or intercourse,. We discussed the possibility that the resection of the prostate may not alleviate his urinary symptoms. We discussed the small risk of developing scar tissue along the urethral channel and strictures. We also discussed the chance of the prostate could grow back and he may need further surgery or treatment in the future for prostate problems. Patient was taken back to the operating room, timeout procedure was performed, he was identified and marked and placed on the operating room table. He underwent general anesthesia. He was placed in dorsolithotomy position. Penis and testicles were prepped and draped in usual sterile fashion. Went into the bladder using the visual obturator with a resectoscope. Once inside the bladder identified the right and left ureteral orifice. I then identified the prostate and the anatomy of the prostate. He had significant blockage from necrotic tissue and regrowth along the channel. I marked out the area of the sphincter and the verumontanum was identified. I then proceeded with the prostate resection first resected the median lobe. And then resected the right lobe of the prostate. Then to resect the left lobe of the prostate. I then resected the apical tissue of the prostate. This was a complete resection of all obstructive tissue to improve voiding and relieve obstruction. I then made sure that there was no injury to the sphincter or the verumontanum was still intact. At the end of the resection all the chips were Ellik out of the bladder. I then identified the left and right ureteral orifice and these were confirmed to be in good position and effluxing and not injured. The resectoscope was removed, a 22 Kinyarwanda catheter was placed into the bladder on continuous irrigation. And the urine was fairly light pink color and draining normally. He was taken back to the PACU in good condition. Surgeon: Radames Armenta Type of Anesthesia: General Drains: 22fr Estimated Blood Loss (mL): 5 Admit VTE Documentation VTE Present on Admission: No VTE Mechan Device Prophylaxis: SCD's VTE Pharm Prophylaxis ordered?: No
[2023-12-10] MEDS: Ketorolac 15 MG/ML Vial IV (16:13)
[2023-12-10] MEDS: 0.9% Normal Saline (1000mL) 1,000 ML 125 ML IV (16:14)
--- NOTE | 2023-12-10 16:27 | POSTOPAN2_ITS ---
Anesthesia Postop Eval I Sum Postop Eval Completion status Anesthesia document: Postop Eval 1 completed: Yes Anesthesia Postop Eval I Summary Anesthesia Postop Eval I Summary: Anesthesia Postop Eval I: Assessment Summary Airway patent Yes 12/10/23 15:58 [email or web address] Spontaneous unlabored Yes 12/10/23 15:58 [email or web address] [email or web address] respirations Mental status Awake,Calm 12/10/23 15:58 [email or web address] nausea No 12/10/23 15:58 [email or web address] Vomiting No 12/10/23 15:58 [email or web address] Anesthesia Postop Eval I: Fluid Summary Crystalloid volume administer 800 12/10/23 15:58 [email or web address] (ml) Colloids volume administered ( ml) Blood Product volume administered (ml) Total IV fluid infused 800 12/10/23 15:58 [email or web address] Anesthesia Postop Eval I: Summary Notes Anesthesia Complication No 12/10/23 15:58 [email or web address] Anesthesia Complication Comment: Post-operative progress note Anesthesia: Postop Eval II Evaluation Mental status: Awake Pain Level: 0 nausea: No Vomiting: No
--- NOTE | 2023-12-10 16:27 | PCM.POSTANE2 ---
Anesthesia Postop Eval I Sum Postop Eval Completion status Anesthesia document: Postop Eval 1 completed: Yes Anesthesia Postop Eval I Summary Anesthesia Postop Eval I Summary: Anesthesia Postop Eval I: Assessment Summary Airway patent Yes 12/10/23 15:58 [email or web address] Spontaneous unlabored Yes 12/10/23 15:58 [email or web address] respirations Mental status Awake,Calm 12/10/23 15:58 [email or web address] nausea No 12/10/23 15:58 [email or web address] Vomiting No 12/10/23 15:58 [email or web address] Anesthesia Postop Eval I: Fluid Summary Crystalloid volume administer 800 12/10/23 15:58 [email or web address] (ml) Colloids volume administered ( ml) Blood Product volume administered (ml) Total IV fluid infused 800 12/10/23 15:58 [email or web address] Anesthesia Postop Eval I: Summary Notes Anesthesia Complication No 12/10/23 15:58 [email or web address] Anesthesia Complication Comment: Post-operative progress note Anesthesia: Postop Eval II Evaluation Mental status: Awake Pain Level: 0 nausea: No Vomiting: No
[2023-12-10] MEDS: Phenazopyridine 95 MG Tablet PO (17:31)
[2023-12-10] MEDS: Ciprofloxacin 400 MG/200 ML BAG 200 MG IV (20:58)
[2023-12-10] MEDS: Losartan Potassium 50 MG Tablet PO (21:02)
[2023-12-10] MEDS: Atorvastatin Calcium 40 MG Tablet PO (21:02)
[2023-12-10] MEDS: Docusate Sodium 100 MG Capsule 200 MG PO (21:02)
[2023-12-10] MEDS: Tamsulosin HCl 0.4 MG Capsule PO (21:03)
[2023-12-10] MEDS: Carvedilol 6.25 MG Tablet PO (21:03)
[2023-12-10] MEDS: metFORMIN HCl 500 MG Tablet PO (21:52)
[2023-12-11 00:29] VITALS: BP 117/61; PULSE 75; RESP 16; TEMP 36.4; O2SAT 93
[2023-12-11] MEDS: 0.9% Normal Saline (1000mL) 1,000 ML 125 ML IV (00:33)
[2023-12-11] MEDS: Levothyroxine 100 MCG Tablet PO (05:41)
[2023-12-11 05:51] VITALS: BP 141/81; PULSE 86; RESP 18; TEMP 36.6; O2SAT 94
[2023-12-11] MEDS: Ketorolac 15 MG/ML Vial IV ×2 (06:24→12:53)
[2023-12-11] MEDS: 0.9% Saline Lock 10 ML Syringe IV ×2 (06:25→12:54)
[2023-12-11] MEDS: Phenazopyridine 95 MG Tablet PO ×2 (08:05→12:57)
[2023-12-11] MEDS: metFORMIN HCl 500 MG Tablet PO ×2 (08:08→11:43)
[2023-12-11 08:37] VITALS: O2SAT 95
--- NOTE | 2023-12-11 10:25 | PCM.PN.GU ---
Subjective Subjective Status post TURP urine is clear will DC El he can go home after he voids. Objective Data Objective Data Vital Signs: Vital Signs Temp Pulse Resp BP Pulse Ox O2 Del Method 97.9 F 86 18 141/81 H 95 Room Air 12/11/23 05:51 12/11/23 05:51 12/11/23 05:51 12/11/23 05:51 12/11/23 08:37 12/11/23 08:37 Oxygen Delivery Method Room Air Weight: 74.7 kg Body Mass Index (BMI) 25.7 Intake & Output: Intake and Output for Last 24 Hours 12/09/23 12/10/23 12/11/23 23:59 23:59 23:59 Intake Total 2610 / 2610 1400 / 1400 Output Total 1250 / 2000 750 / 750 Balance 1360 / 610 650 / 650 Lab / Micro Data 12/10/23 13:20 12/10/23 13:20 Labs: Laboratory Results - last 24 hr 12/10/23 13:20: WBC 13.2 H, RBC 4.23 L, Hgb 12.2 L, Hct 38.6 L, MCV 91.3, MCH 28.8, MCHC 31.6 L, RDW Std Deviation 48.6 H, RDW Coeff of Silvia 14.5, Plt Count 254, MPV 9.5, Sodium 138, Potassium 3.9, Chloride 104, Carbon Dioxide 29.0, Anion Gap 5, BUN 26 H, Creatinine 0.67 L, Estim Creat Clear Calc 82.63, Est GFR (MDRD) Af Amer 151, Est GFR (MDRD) Non-Af 125, BUN/Creatinine Ratio 38.7 H, Glucose 105, Hemoglobin A1c 6.1 H, Calcium 9.5, TSH 0.482 12/10/23 13:28: POC Glucose 106
[2023-12-11] MEDS: Docusate Sodium 100 MG Capsule 200 MG PO (11:38)
[2023-12-11] MEDS: Ciprofloxacin 400 MG/200 ML BAG 200 MG IV (11:38)
[2023-12-11] MEDS: Losartan Potassium 50 MG Tablet PO (11:39)
[2023-12-11] MEDS: Carvedilol 6.25 MG Tablet PO (11:39)
[2023-12-11] MEDS: amLODIPine 10 MG Tablet PO (11:39)
[2023-12-11 13:42] VITALS: BP 143/80; PULSE 79; RESP 18; TEMP 36.9; O2SAT 98
== END 2023-12-11 13:30 | disposition home or self-care (01) ==
LOC: SDC 12:48 → AC 12:55 → MS3 15:39
PROVIDERS: Anesthesiology; PCP Internal Medicine; Referring Provider Urology; Visit Provider Urology
PROC: 0VT08ZZ Resection of Prostate, Via Natural or Artificial Opening Endoscopic (ICD-10-PCS; CPT 52601; principal; 2023-12-10 14:45)
DX: N40.0 Benign prostatic hyperplasia without lower urinary tract symptoms (principal); I42.8 Other cardiomyopathies; E11.9 Type 2 diabetes mellitus without complications; I25.10 Atherosclerotic heart disease of native coronary artery without angina pectoris; Z87.891 Personal history of nicotine dependence; E78.5 Hyperlipidemia, unspecified; Z79.84 Long term (current) use of oral hypoglycemic drugs; I10 Essential (primary) hypertension; Z90.49 Acquired absence of other specified parts of digestive tract; E03.9 Hypothyroidism, unspecified; Z87.19 Personal history of other diseases of the digestive system; N41.9 Inflammatory disease of prostate, unspecified; Z86.16 Personal history of COVID-19; Z85.46 Personal history of malignant neoplasm of prostate
CPT/HCPCS: 52630; 80048; 82962; 83036; 84443; 85027; 88305; J7030; J7120; A4216; J0744; J2405

== ENCOUNTER → 2023-12-16 | Outpatient (CLI) | payer BC, SELFPAY ==
[2019-08-31 11:18] VITALS: BMI 28.1
--- NOTE | 2023-12-16 07:13 | CT_ITS ---
STUDY: CT CHEST WITH CONTRAST REASON FOR EXAM: Male, 68 years old. Tortuous aorta RADIATION DOSAGE (If Supplied By Facility): CTDIvol = ( 13.38 ) mGy, DLP = ( 383.72 ) mGycm TECHNIQUE: Transaxial imaging was performed following intravenous administration of IV 100mL Isovue-300. Multiplanar coronal and sagittal images were reformatted. Individualized dose optimization techniques were used for this CT. COMPARISON: Comparison is made with prior study July 25, 2022. FINDINGS: CHEST Mild increased markings at the lung bases suggestive scarring. Mild emphysematous changes. There is no demonstrated pleural abnormality. There are calcifications of the coronary arteries. Normal mediastinum. Normal hilar regions. Normal unenhanced pulmonary arteries. There is atherosclerotic calcification of the aortic arch. There are multi-level degenerative changes of the thoracic spine. There is no demonstrated abnormality of the visualized upper abdomen. CT/Chest WITH Contrast IMPRESSION: Atheromatous changes and mild scarring at the lung bases. Coronary artery calcification. Electronically Signed: Andrea Mcdonald MD at 14:40 EDT ,
--- NOTE | 2023-12-16 07:13 | US_ITS ---
STUDY: THYROID ULTRASOUND REASON FOR EXAM: Male, 68 years old. thyroid nodule -- due in Sept TECHNIQUE: Ultrasound evaluation of the thyroid was performed with real-time and static rocha-scale imaging. COMPARISON: 12/09/2022 FINDINGS: RIGHT LOBE: The right lobe of the thyroid gland measures 4.5 x 1.6 x 2.0 cm. There is a homogeneous echotexture. There are no demonstrated solid, cystic or complex lesions. LEFT LOBE: The left lobe of the thyroid gland measures 3.8 x 1.3 x 1.6 cm. There is a homogeneous echotexture. Nodule 1: No change in the 8 x 4 x 7 mm solid hypoechoic wider than tall ill-defined margined nodule with no echogenic foci (TR 3) in the anterior left lobe consistent with an adenoma. ISTHMUS: The isthmus measures 3 mm thick. . The regional lymph nodes are normal. US/Thyroid IMPRESSION: No change in small adenoma in the left lobe. Electronically Signed: Rigoberto Mitchell MD at 8:53 EDT ,
== END | disposition home or self-care (01) ==
PROVIDERS: PCP Internal Medicine; Referring Provider Internal Medicine; Visit Provider Internal Medicine
DX: E04.1 Nontoxic single thyroid nodule (principal)
CPT/HCPCS: 71260; 76536; Q9967

== ENCOUNTER → 2024-01-08 | Outpatient (CLI) | payer BC, SELFPAY ==
[2019-08-31 11:18] VITALS: BMI 28.1
[2024-01-08 09:00] LABS: Absolute Lymphocyte Count 1.15 X10^3/uL (0.83-4.51); Absolute Neutrophil Count 7.4 X10^3/uL (2.0-7.7); Basophil# 0.04 X10^3/uL; Basophil% 0.4 % (0-1); Eosinophil# 0.27 X10^3/uL; Eosinophils% 2.8 % (0-5); Hematocrit 37.2 % (40-54); Hemoglobin 11.8 g/dL (13.0-16.5); Lymphocyte # 1.15 X10^3/ul (0.83-4.51); Lymphocyte % 11.8 % (19-41); Mean Corp Hgb Conc 31.7 g/dL (32-36); Mean Corpuscular Volume 91.4 fL (80-94); Mean Platelet Vol. 8.8 fl (6.2-12.0); Monocyte# 0.87 X10^3/uL; Monocyte% 8.9 % (0-10); NRBC Flagged by Analyzer 0 % (0-5); Neutrophil # 7.39 X10^3/uL (2.7-7.7); Neutrophil % 75.7 % (47-70); Platelet Count 287 K/mm3 (150-450); RBC Distribution Width CV 14.1 % (11.6-14.6); RBC Distribution Width SD 47.6 fl (35.1-43.9); Red Blood Count 4.07 M/mm3 (4.6-6.2); White Blood Count 9.8 K/mm3 (4.4-11.0)
[2024-01-08 10:32] LABS: ALB/GLOB Ratio 1.1 RATIO (0.9-2.4); AST(SGOT) 17 U/L (15-37); Alanine Aminotransfer ALT/SGPT 20 U/L (16-61); Albumin, Serum 3.6 g/dL (3.2-5.0); Alkaline Phosphatase 54 U/L (45-117); Anion Gap 3 (5-15); BUN 21 mg/dL (7-18); Calcium,Total 9.4 mg/dL (8.5-10.1); Chloride 105 mmol/L (98-107); Cholesterol 119 mg/dL (200); Creatinine, Serum 0.64 mg/dL (0.70-1.30); EST Glomerular Filtration Rate 133 mL/min (>60); Est Glom Filt Rate - Afr Amer 161 mL/min (>60); Globulin 3.4 g/dL (2.2-4.2); Glucose 106 mg/dL (74-106); High Density Lipoprotein 32 mg/dL; Potassium 3.7 mmol/L (3.5-5.1); Sodium Level 137 mmol/L (136-145); Triglycerides 94 mg/dL; Very Low Density Lipoprotein 19 mg/dL (5-40)
[2024-01-08 11:47] LABS: Microalbumin:Creatinine Ratio 678.4 mg/g CRE (<30 mg/g CRE)
== END | disposition home or self-care (01) ==
LOC: LAB 08:34
PROVIDERS: PCP Internal Medicine; Referring Provider Internal Medicine; Visit Provider Internal Medicine
DX: E78.49 Other hyperlipidemia (principal); E11.21 Type 2 diabetes mellitus with diabetic nephropathy; I11.9 Hypertensive heart disease without heart failure
CPT/HCPCS: 36415; 80053; 80061; 82043; 82570; 83036; 85025

== ENCOUNTER → 2024-07-03 | Outpatient (CLI) | payer MEDICARE, BC, SELFPAY ==
[2019-08-31 11:18] VITALS: BMI 28.1
--- NOTE | 2024-07-03 08:05 | CDU_ITS ---
Reason For Study Reason For Study: Carotid Stenosis Rt. Velocities/BP Lt. Velocities/BP Prox CCA 104/15 cm/sec. Prox CCA 100/21 cm/sec. Mid CCA 67/14 cm/sec. Mid CCA 77/16 cm/sec. Dist CCA 61/15 cm/sec. Dist CCA 70/17 cm/sec. Prox ICA 56/14 cm/sec. Prox ICA 91/26 cm/sec. Mid ICA 64/16 cm/sec. Mid ICA 90/32 cm/sec. Dist ICA 83/25 cm/sec. Dist ICA 96/32 cm/sec. Rt. ICA/CCA = 1.2. Lt. ICA/CCA = 1.2. Prox ECA 88/6 cm/sec. Prox ECA 71/9 cm/sec. Rt. Vert. 88/26 cm/sec. Lt. Vert. 49/12 cm/sec. Right Extracranial There is heterogeneous, irregular atherosclerotic plaque noted in the right common carotid artery. There is heterogeneous, irregular atherosclerotic plaque noted in the right internal carotid artery. There is intimal thickening but no significant atherosclerotic plaque noted in the right external carotid artery. Antegrade flow is noted in the right vertebral artery. Left Extracranial There is intimal thickening but no significant atherosclerotic plaque noted in the left common carotid artery. There is heterogeneous, irregular atherosclerotic plaque noted in the left internal carotid artery. The atherosclerotic plaque causes acoustic shadowing. There is intimal thickening but no significant atherosclerotic plaque noted in the left external carotid artery. Antegrade flow is noted in the left vertebral artery. Procedure Carotid Duplex 53445. This is a Carotid Duplex examination using B-mode, color flow and specral Doppler. Exam performed in department. VL/Carotid Duplex Ultrasound Interpretation Summary Mild (<50%) stenosis right extracranial internal carotid. Mild (<50%) stenosis left extracranial internal carotid. Patent and antegrade vertebrals bilaterally. Ordering Physician: Rena Moore Referring Physician: Rena Moore Performed By: Oralia Marr, RDCS, RVT
== END | disposition home or self-care (01) ==
PROVIDERS: PCP Internal Medicine; Referring Provider Internal Medicine; Visit Provider Internal Medicine
DX: I65.23 Occlusion and stenosis of bilateral carotid arteries (principal)
CPT/HCPCS: 93880

== ENCOUNTER → 2024-11-29 | Outpatient (CLI) | payer MEDICARE, BC, SELFPAY ==
[2024-11-01 10:55] VITALS: BMI 28.1
[2024-11-29 12:31] LABS: Hematocrit 37.3 % (40-54); Hemoglobin 11.9 g/dL (13.0-16.5); Immature Granulocytes Count 0.020 X10^3/uL (0.0-0.0); Mean Corp Hgb Conc 31.9 g/dL (32-36); Mean Corpuscular Volume 91.2 fL (80-94); Mean Platelet Vol. 9.8 fl (6.2-12.0); NRBC Flagged by Analyzer 0 % (0-5); Platelet Count 263 K/mm3 (150-450); RBC Distribution Width CV 15.4 % (11.6-14.6); RBC Distribution Width SD 51.0 fl (35.1-43.9); Red Blood Count 4.09 M/mm3 (4.6-6.2); White Blood Count 8.7 K/mm3 (4.4-11.0)
== END | disposition home or self-care (01) ==
LOC: MTLAB 10:11
PROVIDERS: PCP Internal Medicine; Referring Provider Internal Medicine Pulmonary Disease; Visit Provider Internal Medicine Pulmonary Disease
DX: R06.00 Dyspnea, unspecified (principal)
CPT/HCPCS: 36415; 85025

== ENCOUNTER → 2025-01-01 | Outpatient (CLI) | payer MEDICARE, BC, SELFPAY ==
[2024-11-01 10:55] VITALS: BMI 28.1
--- NOTE | 2025-01-01 11:44 | US_ITS ---
PROCEDURE: THYROID 01/01/2025 REASON FOR EXAM: THYROID NODULE TECHNIQUE: Procedure Code: USTHY Modality: US Procedure: THYROID COMPARISON: Thyroid ultrasound on 12/16/2019 FINDINGS: Right thyroid lobe size: 3.5 x 1.0 x 1.4 cm Left thyroid lobe size: 3.2 x 0.9 x 1.4 cm Isthmus: 0.1 cm Background parenchymal echotexture is homogeneous. Nodules: 1. Lobe: Left, Location: , Size: 0.7 x 0.6 x 0.4 cm, Stability: Stable Composition: Solid or almost completely solid (+2) Echogenicity: Hyper to Isoechoic (+1) Margin: Smooth (+0) Shape: Wider than tall (+0) Echogenic Foci: None (+0) TI-RADS: 3 US/Thyroid IMPRESSION: Solitary nodule in the left thyroid lobe measuring 0.7 cm is unchanged and does not require continued follow-up or FNA per ACR TI-RADS guidelines. Reading Location: [facility]
== END | disposition home or self-care (01) ==
LOC: US 11:42
PROVIDERS: PCP Internal Medicine; Referring Provider Internal Medicine; Visit Provider Internal Medicine
DX: E04.1 Nontoxic single thyroid nodule (principal)
CPT/HCPCS: 76536

== ENCOUNTER → 2025-02-06 | Outpatient (CLI) | payer MEDICARE, BC, SELFPAY ==
[2024-11-01 10:55] VITALS: BMI 28.1
[2025-02-06 09:25] LABS: Hematocrit 41.2 % (40-54); Hemoglobin 13.3 g/dL (13.0-16.5); Immature Granulocytes Count 0.040 X10^3/uL (0.0-0.0); Mean Corp Hgb Conc 32.3 g/dL (32-36); Mean Corpuscular Volume 91.2 fL (80-94); Mean Platelet Vol. 9.3 fl (6.2-12.0); NRBC Flagged by Analyzer 0 % (0-5); Platelet Count 306 K/mm3 (150-450); RBC Distribution Width CV 14.6 % (11.6-14.6); RBC Distribution Width SD 49.1 fl (35.1-43.9); Red Blood Count 4.52 M/mm3 (4.6-6.2); White Blood Count 10.8 K/mm3 (4.4-11.0)
[2025-02-06 10:07] LABS: Ferritin 24 ng/mL (37-417); Iron 62 ug/dL (65-175); PSA,Total- Diagnostic 0.25 ng/mL (0.00-4.00)
== END | disposition home or self-care (01) ==
LOC: LAB 08:58
PROVIDERS: PCP Internal Medicine; Referring Provider Internal Medicine; Visit Provider Internal Medicine
DX: C61 Malignant neoplasm of prostate (principal); D50.9 Iron deficiency anemia, unspecified
CPT/HCPCS: 36415; 82728; 83540; 84153; 85025

== ENCOUNTER → 2025-03-08 | Outpatient (CLI) | payer MEDICARE, BC, SELFPAY ==
[2024-11-01 10:55] VITALS: BMI 28.1
[2025-03-08 11:13] LABS: Squamous Epithelial Cells - UA 0 SEEN /hpf (0-5)
[2025-03-08 11:17] LABS: Color, Urine Yellow (Yellow); Glucose, Dipstick 1000 mg/dl (Normal); Ketone-Dipstick Negative (Negative); Leukocyte Esterase-Dipstick Negative /ul (Negative); Nitrite-Dipstick Negative (Negative); Occult Blood-Urine 10 /ul (Negative); Protein-Dipstick 100 mg/dl (Negative); Specific Gravity, Urine 1.015 (1.002-1.030); Urine Bilirubin Dipstick Negative (Negative)
[2025-03-08 11:21] LABS: Hematocrit 39.6 % (40-54); Hemoglobin 12.2 g/dL (13.0-16.5); Immature Granulocytes Count 0.110 X10^3/uL (0.0-0.0); Mean Corp Hgb Conc 30.8 g/dL (32-36); Mean Corpuscular Volume 92.5 fL (80-94); Mean Platelet Vol. 9.4 fl (6.2-12.0); NRBC Flagged by Analyzer 0 % (0-5); POSITIVE DIFFERENTIAL YES; Platelet Count 329 K/mm3 (150-450); RBC Distribution Width CV 14.3 % (11.6-14.6); RBC Distribution Width SD 48.1 fl (35.1-43.9); Red Blood Count 4.28 M/mm3 (4.6-6.2); White Blood Count 15.9 K/mm3 (4.4-11.0)
[2025-03-08 11:22] LABS: Red Blood Cells-Urine 0-5 SEEN /hpf (0-5)
[2025-03-08 11:23] LABS: Mucous, Urine 1+ /hpf (<or=2+)
[2025-03-08 11:33] LABS: Differential Indicated SCAN CRITERIA MET
[2025-03-08 11:52] LABS: Creatinine, Urine (random) 121.00 mg/dL (39.00-259.00); Microalbumin,Random Urine 283.0 mg/L (<20 mg/L)
[2025-03-08 11:54] LABS: AST(SGOT) 19 U/L (<=37); Alanine Aminotransfer ALT/SGPT 21 U/L (<=46); Albumin, Serum 4.4 g/dL (3.4-4.8); Alkaline Phosphatase 59 U/L (40-129); Anion Gap 12 (5-15); BUN 25 mg/dL (4-19); BUN/Creat Ratio 30.8 RATIO (10-20); Calcium,Total 9.7 mg/dL (7.6-11.0); Carbon Dioxide 25.8 mmol/L (21.0-32.0); Chloride 101 mmol/L (98-108); Globulin 2.3 g/dL (2.2-4.2); Glucose 90 mg/dL (70-99); Potassium 4.1 mmol/L (3.3-5.1)
[2025-03-08 12:10] LABS: Differential Comment SCANNED
== END | disposition home or self-care (01) ==
LOC: LABSPEC 10:45
PROVIDERS: PCP Internal Medicine; Referring Provider Internal Medicine; Visit Provider Internal Medicine
DX: R31.9 Hematuria, unspecified (principal); E11.9 Type 2 diabetes mellitus without complications; D50.9 Iron deficiency anemia, unspecified
CPT/HCPCS: 80053; 81001; 82043; 82570; 85025; 87086

== ENCOUNTER → 2025-03-28 | Outpatient (CLI) | payer MEDICARE, BC, SELFPAY ==
[2024-11-01 10:55] VITALS: BMI 28.1
[2025-03-28 12:00] LABS: Hematocrit 38.0 % (40-54); Hemoglobin 12.3 g/dL (13.0-16.5); Immature Granulocytes Count 0.060 X10^3/uL (0.0-0.0); Mean Corp Hgb Conc 32.4 g/dL (32-36); Mean Corpuscular Volume 89.4 fL (80-94); Mean Platelet Vol. 9.4 fl (6.2-12.0); NRBC Flagged by Analyzer 0 % (0-5); Platelet Count 271 K/mm3 (150-450); RBC Distribution Width CV 14.4 % (11.6-14.6); RBC Distribution Width SD 46.7 fl (35.1-43.9); Red Blood Count 4.25 M/mm3 (4.6-6.2); White Blood Count 10.0 K/mm3 (4.4-11.0)
[2025-03-28 12:21] LABS: Ferritin 25 ng/mL (37-417); Iron 55 ug/dL (65-175)
[2025-03-29 08:08] LABS: CRP, High Sensitivity 2.25 mg/L (0.00-3.00)
== END | disposition home or self-care (01) ==
LOC: MTLAB 09:59
PROVIDERS: PCP Internal Medicine; Referring Provider Internal Medicine; Visit Provider Internal Medicine
DX: D72.829 Elevated white blood cell count, unspecified (principal); R79.82 Elevated C-reactive protein (CRP); D50.9 Iron deficiency anemia, unspecified
CPT/HCPCS: 36415; 82728; 83540; 85025; 86141